=== PATIENT | male | born 1940 | race Caucasian/White ===

== ENCOUNTER → 2016-10-26 | Outpatient (CLI) | payer MEDICARE ==
[~2016-10-26] MED LIST: CENTRUM SILVER1 CTB PO; Ecotrin325 MG PO; LIPITOR10 MG PO; Lovenox40 MG/0.4 PO; MIRALAX17 GM/PACK PO; NORVASC2.5 MG PO; OMEGA-3 FISH1200 MG PO; PERCOCET 325 MG1 TAB PO; PLAVIX75 MG PO; POTASSIUM CL PO; PRILOSEC20 MG PO; RIFAMPIN300 MG PO; VANCOCIN1000 MG/25 IV
--- NOTE | ~2016-10-26 | PR ---
[place], [place] PROGRESS NOTE NAME: SHALINI HIGGINS [facility] #: [id number] UNIT #: [id number] ROOM: DOCTOR: MARISOL MartinezSONNY BIRTHDATE: [birth year] DOS: 10/26/2016 CHIEF COMPLAINT: Cyst on the left knee. HISTORY OF PRESENT ILLNESS: This is a 76-year-old gentleman with a history of an infected total knee arthroplasty. He had been seen here in the wound clinic back in the late summer. At that time, he has a history of a total knee arthroplasty. He has undergone a revision of this for infection. He was treated with IV antibiotics. He had bone debridement. He still, however, has hardware in the knee. He was seen by multiple surgeons, physicians for opinions. He has been seen by Dr. Curry for Infectious Disease who felt that there was likely chronic osteomyelitis with a sinus tract at that time and had discussed removing the hardware; however, the patient elected to not have this done. He did have a small wound; however, there was a fistula that did tunnel when he was seen here and it did eventually heal with the wound VAC. It was about 1.8 cm, possibly deeper when it first started. In any case, the wound did heal with wound care. He did not elect to undergo any surgical intervention or hyperbaric oxygen as adjuvant therapy. The wound state healed after he was seen here until he developed a swelling approximately 1 to 2 weeks ago of the left knee, again that appears to be a cyst. It is not open and has not actually drained yet, but this is how his initial wound started was exactly like this back in the past. He has not been to see his orthopedic doctor. OBJECTIVE: VITAL SIGNS: Temperature is 98.3, pulse of 78, respirations 18, blood pressure is 124/64. EXTREMITIES: He has an approximately 2 x 2 cystic area that is not warm and not acutely tender. It is soft, but I do not appreciate any surrounding cellulitis. 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 He has had a wound. He was here for back in the summer that healed with the wound VAC. He now presents with a recurrent swelling in the area. 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 The wound is currently not open. At this point, I would recommend for him to be seen by surgeon first to have this drained and then he can follow back up in the Wound Clinic once he has an open wound. He does not wish to see his previous orthopedic doctor. I did make suggestions to see Dr. Garrido. She is local and he is agreeable to this. So he is going to follow up with her first and then once the area is drained, he can follow back up with us if the wound remains open. [place], [place] PROGRESS NOTE NAME: HIGGINSSHALINI UNIT #: [id number] ROOM: DOCTOR: SONNY DAMON M.D. BIRTHDATE: [birth year] SONNY DAMON MD CM:AAMIR [id number] SONNY DAMON M.D. 10/27/16 0930 interface
== END ==
LOC: WOUNDCARE 02:09
DX: M25.162 Fistula, left knee (principal); M86.60 Other chronic osteomyelitis, unspecified site

== ENCOUNTER → 2016-11-09 | Outpatient (CLI) | payer MEDICARE ==
[~2016-11-09] MED LIST changes: +ASPIRIN81 M1 PO; +CLARITIN10 MG PO; +GOOD NEIGHBOR L10 MG PO; +KLOR-CON 88 ME1 PO; +OMEPRAZOLE D/R20 MG PO; +UROMAG84.5 MG PO; +[UNRECOGNIZED DRUG - OTHER]; +[UNRECOGNIZED DRUG - OTHER] PO
[2016-11-09 12:18] LABS: BASO # 0.1 10*3/uL (0.0-0.1); BASO % 0.7 % (0.0-1.0); EOS # 0.2 10*3/uL (0.0-0.4); EOS % 2.5 % (1.0-4.0); HEMATOCRIT 41.2 % (42.0-52.0); HEMOGLOBIN 12.6 g/dl (14.0-18.0); LYMPH # 1.8 10*3/uL (1.3-4.4); LYMPH % 22.2 % (27.0-41.0); MEAN CELL VOLUME 84.9 fl (80.0-94.0); MEAN CORPUSCULAR HGB CONC 30.6 g/dl (33.0-37.0); MEAN PLATELET VOLUME 10.2 fl (9.6-12.3); MONO # 0.7 10*3/uL (0.1-1.0); MONO % 8.9 % (3.0-9.0); NEUT # 5.4 10*3/uL (2.3-7.9); NEUT % 65.2 % (47.0-73.0); PLATELET COUNT AUTOMATED 275 10*3/uL (130-400); RED BLOOD COUNT 4.85 10*6/uL (4.50-5.90); WHITE BLOOD COUNT 8.3 10*3/uL (4.8-10.8)
[2016-11-09 12:32] LABS: HEMOGLOBIN A1c 5.1 % (4.8-5.6)
== END | disposition home or self-care (01) ==
LOC: ORTHO 01:48
PROVIDERS: Orthopaedic Surgery
DX: Z01.818 Encounter for other preprocedural examination (principal); M25.562 Pain in left knee; J84.9 Interstitial pulmonary disease, unspecified; Z87.891 Personal history of nicotine dependence; Z96.652 Presence of left artificial knee joint

== ENCOUNTER → 2016-11-12 | Day surgery (SDC) | payer MEDICARE ==
[2016-11-10 11:50] LABS: BILIRUBIN NEGATIVE (NEGATIVE); BLOOD NEGATIVE (NEGATIVE); CLARITY CLEAR (CLEAR); COLOR YELLOW (YELLOW); GLUCOSE NEGATIVE (NEGATIVE); KETONE NEGATIVE (NEGATIVE); LEUKO ESTERASE NEGATIVE (NEGATIVE); NITRITE NEGATIVE (NEGATIVE); PH 5.5 (5.0-9.0); PROTEIN NEGATIVE (NEGATIVE); SPECIFIC GRAVITY <= 1.005 (1.005-1.030); UROBILINOGEN 0.2 E.U./dl (0.2-1.0)
[2016-11-10 12:23] LABS: ALBUMIN 3.6 gm/dl (3.1-4.5); ALKALINE PHOSPHATASE 140 U/L (45-117); BILIRUBIN, TOTAL 0.4 mg/dl (0.2-1.0); BUN 9 mg/dl (7-24); CARBON DIOXIDE 29 mmol/L (21-32); CHLORIDE 105 mmol/L (98-107); EST GLOM FILT AFRICAN AMERICAN > 60 ml/min; GLUCOSE 90 mg/dL (65-99); POTASSIUM 4.6 mmol/L (3.5-5.1); SGOT/AST 26 IU/L (3-35); SGPT/ALT 28 U/L (12-78); SODIUM 143 mmol/L (136-145); TOTAL PROTEIN 7.9 gm/dL (6.4-8.2)
[2016-11-12] VITALS (7 sets, daily range): BP systolic 122–131; BP diastolic 57–76
[~2016-11-12] VITALS: Ht 170.1 cm; Wt 70.3 kg
[~2016-11-12] MED LIST changes: +PERCOCET 325 MG1 TA5 PO; +PERCOCET 325 MG1 TA6 PO; +ZOFRAN4 MG PO
--- NOTE | ~2016-11-12 | EKG ---
[place], [place] ELECTROCARDIOGRAM REPORT NAME: SHALINI HIGGINS UNIT #: [id number] ROOM: DOCTOR: HARPREET VAZQUEZ MD BIRTHDATE: [birth year] DOS: 11/10/2016 TIME: 11:46 a.m. FINDINGS: Normal sinus rhythm at rate of 63. Left bundle branch block. Abnormal electrocardiogram. HARPREET VAZQUEZ MD CM:EKGRPT:ELECTROCARDIOGRAM REPORT [id number] HARPREET VAZQUEZ MD
--- NOTE | ~2016-11-12 | O ---
[place], [place] OPERATIVE NOTE NAME: SHALINI HIGGINS UNIT #: [id number] ROOM: DOCTOR: DWIGHT GARRIDO DO BIRTHDATE: [birth year] DOS: 11/12/2016 PREOPERATIVE DIAGNOSIS: Left proximal tibia abscess with granulation tissue. POSTOPERATIVE DIAGNOSIS: Left proximal tibia abscess with granulation tissue. PROCEDURE: Left proximal tibia abscess with granulation tissue excision and curettage. SURGEON: Dwight Garrido DO PULPING MACHINE OPERATOR: Carol. ANESTHESIA: Carbajal. TYPE OF ANESTHESIA: General with LMA intubation. INDICATIONS: The patient is a 76-year-old male with a history of a total knee replacement approximately 7 years ago. The patient states he has had continual problem with the knee including recurrence of draining and abscess. The patient had a revision of the total knee and has had continued problems since as well. He has been seen by multiple total joint specialists, reconstruction specialists, infectious disease specialists, and wound care specialists. We discussed that although I could excise and apply a wound VAC to this condition, it would not be easy definitive procedure. He understands this. Risks and benefits of the procedure were explained to the patient preoperatively. Preoperative labs and x-rays were obtained. PROCEDURE IN DETAIL: The left lower extremity was marked in the holding room. The patient was brought to the operative suite. Timeout was performed. A general anesthetic with LMA intubation was performed. The left lower extremity was prepped and draped in the usual orthopedic fashion. A 3 x 3 cm area of granulation tissue with necrotic tissue was excised in its entirety and sent to the lab for further study. Cultures were obtained. There was noted to be some purulence. A curette was used to clear any remaining necrotic or granulation tissue and explore the wound. There was noted to be a 3 cm tunneling in the medial direction. This area was copiously irrigated with over 3 L of normal saline. A wound VAC was applied in the usual manner. The anesthetic was reversed. The patient was extubated and taken to the recovery room in satisfactory condition. Sponge and needle count correct. ESTIMATED BLOOD LOSS: 5 mL. DRAINS: None. PACKING: None. Wound VAC applied. [place], [place] OPERATIVE NOTE NAME: SHALINI HIGGINS UNIT #: [id number] ROOM: DOCTOR: DWIGHT GARRIDO DO BIRTHDATE: [birth year] FINDINGS: A 3 x 3 cm granulation and necrotic tissue with purulent left proximal tibia with 3 cm tunnel. SPECIMENS: The granulation tissue and culture and sensitivity were sent to the lab for further study. DWIGHT GARRIDO DO CM:OPRECORD:OPERATIVE NOTE 1 5 DWIGHT GARRIDO DO 11/13/16 0827 interface
== END | disposition home or self-care (01) ==
LOC: SDC 11-10 10:15
PROVIDERS: Orthopaedic Surgery
DX: L97.929 Non-pressure chronic ulcer of unspecified part of left lower leg with unspecified severity (principal); L02.416 Cutaneous abscess of left lower limb; M96.89 Other intraoperative and postprocedural complications and disorders of the musculoskeletal system; Z96.659 Presence of unspecified artificial knee joint; I10 Essential (primary) hypertension; Z86.73 Personal history of transient ischemic attack (TIA), and cerebral infarction without residual deficits

== ENCOUNTER → 2016-11-16 | Outpatient (CLI) | payer MEDICARE ==
--- NOTE | ~2016-11-16 | PR ---
[place], [place] PROGRESS NOTE NAME: SHALINI HIGGINS [facility] #: [id number] UNIT #: [id number] ROOM: DOCTOR: MARISOL MartinezSONNY BIRTHDATE: [birth year] DOS: 11/16/2016 WOUND CARE PROGRESS NOTE CHIEF COMPLAINT: Open wound of the left knee. HISTORY OF PRESENT ILLNESS: This is a 76-year-old male with a history of a total knee arthroplasty with subsequent infection. He underwent revision for infection. Despite this, continued to have a recurrent open wound that heals and then reopens the draining sinus tract. He was felt to have a probable chronic osteomyelitis and was seen here back last fall for an open wound that took approximately a month to heal with the wound VAC. This wound did stay healed until there was a notable recurrent cyst back early October. The wound had not opened up, but was obviously felt to have some recurrent cyst sinus tract formation. The patient was referred to ortho where he did undergo an operative excision of the area. The patient underwent OR debridement and excision of the area on 11/12/[address] Garrido. At that time, the actual bacterial cultures did not grow anything, however, the Gram stain did show rare gram-positive cocci in pairs, no bacterial growth, also he had a bone debridement done, which was consistent with an abscess, subacute suppurative inflammation with necrosis consistent with an abscess. The Gram stain was positive for gram-positive cocci. He was not placed on any antibiotics at that time. In any case, he did have a wound VAC placed operatively after the debridement done. Since they started the wound VAC, he has had a lot of trouble with the readings. It has been beeping on and off persistently with multiple readings that are either very, very low or very, very high. They did not notice any obvious air leak that they are aware of. They said they tried to call the 1800 number on the [employer] V[employer], but there was no answer over the weekend, so he is very frustrated with the wound VAC at this point. It was noted that during the operation, there was a 3 cm tunnel in the medial direction after the debridement. This area was copiously irrigated with normal saline. The patient has no other specific complaints, occasional discomfort with the wound is as noted, but overall no acute changes with the wound. No fevers or chills. OBJECTIVE: VITAL SIGNS: Stable. Temperature is 98.4, pulse of 70, respirations 18, blood pressure is 108/64. The wound is measuring 2.1 x 2 x 0.8. The base of the wound is nice and clean. There is granulation tissue noted. I do not appreciate a very deep tunnel. I do remember that in the past had tracked quite a bit that was noted. I do not appreciate this at this time. There is no surrounding cellulitis. It looks clean, no debridement was done. Apparently, there was quite a bit of difficulty getting the sponge from the wound VAC out of the wound. 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 This is chronic and refractory despite debridements and courses of antibiotics. He has had a recent OR excision of the area to remove what appeared to be an abscess. Cultures were negative. He was not placed on an antibiotic; however, after reviewing the path report, there was gram-positive cocci seen on the pathology report even though nothing grew. I [place], [place] PROGRESS NOTE NAME: GISELASHALINI Kee UNIT #: [id number] ROOM: DOCTOR: SONNY DAMON M.D. BIRTHDATE: [birth year] would like the patient to just at least be seen by Infectious Disease to get their input as far as if there are any other antibiotics that need to be added. He has been on multiple courses of antibiotics. He did have a white count done that was 8.3. This is back on the . He had a normal Chem-7, his glucose was 90. He had an ESR, which I believe was only 15. He had a CRP, which was elevated at 1.31. He had a repeat imaging study as well, which showed a stable left knee arthroplasty, so I would like the patient to follow up with ID as well. In addition, I would like to try to reuse the wound VAC as it does seem like it did really help with the measurements. According to the OR note, there was quite a large tunnel. This does not seem to be seen at this time, so I would like to go ahead and see if we can do the wound VAC back again. We will have it changed 3 times a week and have home health follow the patient. I did place a call out to the company regarding the possibility of the defective wound VAC. They state that they have to have the patient themselves called first regarding this and if there is still an issue, they will send a graphic art sales representative to the home, so hopefully we will get that resumed as soon as possible. In the meantime, we will go ahead and use Hydrofera Blue to the wound and have him changed it every other day. Follow up in the Wound Clinic in one week. SONNY DAMON MD CM:AAMIR [id number] SONNY DAMON M.D. 11/17/16 1321 interface
== END ==
LOC: WOUNDCARE 00:53
DX: T81.4XXD Infection following a procedure, subsequent encounter (principal); B99.8 Other infectious disease; Z96.652 Presence of left artificial knee joint; Y83.8 Other surgical procedures as the cause of abnormal reaction of the patient, or of later complication, without mention of misadventure at the time of the procedure

== ENCOUNTER → 2016-11-23 | Outpatient (CLI) | payer MEDICARE ==
--- NOTE | ~2016-11-23 | PR ---
[place], [place] PROGRESS NOTE NAME: SHALINI HIGGINS [facility] #: [id number] UNIT #: [id number] ROOM: DOCTOR: SONNY DAMON M.D. BIRTHDATE: [birth year] DOS: 11/23/2016 The patient comes in for a wound care visit. His chief complaint is open wound of the left knee. HISTORY OF PRESENT ILLNESS: This is a 76-year-old male with a recurrent wound with status post total knee arthroplasty with subsequent infection. He is status post revision of this operatively, but continues to have a recurrent open draining sinus tract. He was taken to the OR recently and had a wound VAC applied to it. He was seen postoperatively here in the Wound Clinic with the wound VAC on. However, at that time, he had a lot of complaints about the VAC, it was not really sucking at the time and after we had managed to get home health come in to evaluate the situation, it was felt that it was because it was not a good seal. In any case, the patient is doing well. He was not put on oral antibiotics after the debridement. He was seen by Infectious Disease. I had actually requested this. I was concerned about some bacteria on the Gram stain that was seen postoperative intraoperatively; however, the culture was negative. In any case, he is doing fairly well without any change, fevers or chills. He was seen by ID and was told that he did not need any antibiotics and he is doing a lot better with the wound VAC from last time. OBJECTIVE: VITAL SIGNS: Stable. Temperature is 98.2, pulse of 72, respirations 18, blood pressure is 122/70. WOUND EXAMINATION: The wound is measuring 1.5 x 1.6 x 0.6 in depth. There is some fibrin slough present in the base of the wound. It definitely looks improved as far as the margins go and the depth looks improved as well. A debridement was done as there was some fibrin slough present. The tissue removed was fibrin, slough and subcutaneous tissue. This was accomplished with a curette. There was a minimal amount of bleeding that was controlled with pressure. Post-debridement measurements are unchanged except for the depth of 0.7. The entire area was debrided. ASSESSMENT AND PLAN: Recurrent open wound of the left knee, status post total knee arthroplasty with probable chronic osteomyelitis. The wound seems to be improving with the wound VAC. We will continue this for now. Follow up in one week. We did mention hyperbaric oxygen as possible adjunctive treatment in the past. He was not interested, but we will consider revisiting this subject if we have stalling of the wound. Follow up in 1 week. [place], [place] PROGRESS NOTE NAME: SHALINI HIGGINS UNIT #: [id number] ROOM: DOCTOR: SONNY DAMON M.D. BIRTHDATE: [birth year] SONNY DAMON MD CM:AAMIR [id number] SONNY DAMON M.D. 11/23/16 2357 interface
== END ==
LOC: WOUNDCARE 01:11
DX: L97.822 Non-pressure chronic ulcer of other part of left lower leg with fat layer exposed (principal); M25.162 Fistula, left knee; M86.68 Other chronic osteomyelitis, other site

== ENCOUNTER → 2016-11-30 | Outpatient (CLI) | payer MEDICARE ==
--- NOTE | ~2016-11-30 | PR ---
[place], [place] PROGRESS NOTE NAME: SHALINI HIGGINS [facility] #: [id number] UNIT #: [id number] ROOM: DOCTOR: MARISOL MartinezSONNY BIRTHDATE: [birth year] DOS: 11/30/2016 CHIEF COMPLAINT: Follow up of ulcer of the left lower extremity. HISTORY OF PRESENT ILLNESS: This is a patient who has had a total knee arthroplasty done in the past with subsequent infection. He is status post revision operatively, but continues to have recurrent open draining sinus tract. He underwent incision and drainage in the Operating Room just several weeks ago and had a wound VAC placed postoperatively. He has been following in the Wound Clinic for 5 weeks now. He has had the wound VAC on for approximately 2-1/2 weeks without any fevers or chills. He said the only discomfort is sometimes it does pull on his wound and he has some discomfort with the wound VAC, but overall he is doing fairly well. No fevers or chills. No nausea or vomiting. He is able to walk. OBJECTIVE: VITAL SIGNS: As follows: His temperature is 97.7, pulse of 70, respirations 18, blood pressure is 118/70. EXTREMITIES: The wound is located on the anterior tibia below the knee. It is measuring 1.3 x 1.3 x 0.1 is what is written in the chart; however, it is obvious that it is a little deeper than that, especially in the proximal portion where I would have measured at least to 0.2. There is minimal fibrin slough present. There does appear to be granulation tissue. The periwound is a little moist and macerated, but there are no sign of cellulitis. There is no tenderness or purulence present. A selective debridement was done today. The tissue removed was just nonviable fibrin and slough. There was minimal bleeding. Post debridement measurements are unchanged. There is like I said before, the depth is a little bit deeper in the proximal portion where it is 0.2; about 100% of the wound was selectively debrided. The patient tolerated the debridement well. Cetacaine spray was used for topical anesthesia. A time-out was conducted prior to the start of the procedure. ASSESSMENT AND PLAN: Recurrent open wound of the left knee, status post left total knee arthroplasty with probable chronic osteomyelitis. The wound is definitely improving. It has made quite a bit of progress. I would like to hold off on the wound VAC for this week and just use collagen and see how he does. If it seems like it stalled, then we will go back to the wound VAC, but I would like to go ahead and try a collagen dressing for now; as the wound seems to be healing nicely, we will hold off on any hyperbaric oxygen treatment. Follow up in 1 week. [place], [place] PROGRESS NOTE NAME: SHALINI HIGGINS UNIT #: [id number] ROOM: DOCTOR: SONNY DAMON M.D. BIRTHDATE: [birth year] SONNY DAMON MD CM:PNTRANS [id number] SONNY DAMON M.D. 12/01/16 0022 interface
== END ==
LOC: WOUNDCARE 03:35
DX: L97.822 Non-pressure chronic ulcer of other part of left lower leg with fat layer exposed (principal); M25.162 Fistula, left knee

== ENCOUNTER → 2016-12-07 | Outpatient (CLI) | payer MEDICARE ==
--- NOTE | ~2016-12-07 | PR ---
[place], [place] PROGRESS NOTE NAME: SHALINI HIGGINS [facility] #: [id number] UNIT #: [id number] ROOM: DOCTOR: SONNY DAMON M.D. BIRTHDATE: [birth year] DOS: 12/07/2016 CHIEF COMPLAINT: Followup of ulcer of the left lower extremity. 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 He did have a revision done, but continues to have an open ulcer periodically. He had a wound VAC placed operatively after the area was debrided and cleaned surgically. He comes in today without any specific complaints. The wound VAC was put on hold last week as to see how he did without it. There are no fevers or chills; however, he does state that the wound is draining quite a bit still. No discomfort. He is able to get around. PHYSICAL EXAMINATION: VITAL SIGNS: He is afebrile, pulse of 68, respirations 18, blood pressure is 116/68. WOUND EXAM: The wound is measuring 1.1 x 1.1 x 0.2. Although the medical charts indicate 0.1, it is actually deeper than that, there is minimal fibrin slough present. There is fairly healthy granulation tissue. There is no surrounding cellulitis, purulence or tenderness. A debridement was done today. The tissue removed was fibrin, slough and subcutaneous tissue. There was a moderate amount of bleeding that was controlled with pressure. Post-debridement measurements are unchanged except for the depth of 0.2. 100% of the wound was debrided. A curette was utilized. Cetacaine spray was used for topical anesthesia. 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 I would like to utilize this modality for now and the patient is okay with that, although he prefers not using the wound VAC. I think since there is so much drainage, we should continue with the wound VAC. Have him follow up in one week. SONNY DAMON MD CM:PNTRANS [phone] SONNY DAMON M.D. 12/07/161899 interface
== END ==
LOC: WOUNDCARE 03:38
DX: L97.822 Non-pressure chronic ulcer of other part of left lower leg with fat layer exposed (principal); M86.662 Other chronic osteomyelitis, left tibia and fibula; I48.91 Unspecified atrial fibrillation

== ENCOUNTER → 2016-12-16 | Outpatient (CLI) | payer MEDICARE ==
--- NOTE | ~2016-12-16 | PR ---
[place], [place] PROGRESS NOTE NAME: SHALINI HIGGINS [facility] #: [id number] UNIT #: [id number] ROOM: DOCTOR: MARISOL MartinezSONNY BIRTHDATE: [birth year] DOS: 12/16/2016 CHIEF COMPLAINT: Followup of an ulcer of the left lower extremity. HISTORY OF PRESENT ILLNESS: The patient has a chronic recurrent ulcer after a total knee arthroplasty with suspected chronic osteomyelitis and chronic fistula formation. He has had a revision done after surgery; however, continues to have recurrent open ulcers and wounds after that revision. He has been coming to the Wound Clinic for 6 weeks now. He has had a wound VAC done after surgical debridement was accomplished. Last week, we restarted the wound VAC as he continued to have quite a bit of drainage and was thought that would help with some of the drainage control. He has no specific complaints. No fevers or chills. No pain, no nausea or vomiting. OBJECTIVE: VITAL SIGNS: Temperature is 98.2, pulse of 68, respirations are 18, blood pressure is 116/68. WOUND EXAM: The wound is measuring slightly smaller at 1.1 x 1.1 x 0.1 depth is noted. There is some moderate amount of fibrin slough present in the base of the wound. The periwound is slightly macerated, and there is a slight protrusion of the periwound distally noted, possibly from the negative pressure. It is not tender at all. There is no sign of an abscess or anything like that. A debridement was done. The tissue removed was fibrin, slough and subcutaneous tissue. The instrument utilized was a curette. There was a moderate amount of bleeding that was controlled with pressure. The patient tolerated the debridement well. Cetacaine spray was used for topical anesthesia. Timeout was conducted prior to the start of the procedure. The post-debridement measurements are the same except for the depth of 0.2 and that is mostly in the proximal portion of the wound. ASSESSMENT AND PLAN: Chronic ulcer of the left knee which had a lot of healing since he presented. If we do stall, we may want to consider him a candidate for hyperbaric oxygen therapy, I did mention this to him today, so that he has this also on the back of his mind. In the meantime, we will stop the wound VAC and due to the protrusion that seems to be related to the negative pressure, so I would like to just hold off on the wound VAC for now, lets do an alginate to help absorb drainage with a silver like Maxorb silver and have him change it every other day, some Calazime to the periwound should be applied and have him follow up in one week. I have also added for next week a complete blood work panel. [place], [place] PROGRESS NOTE NAME: SHALINI HIGGINS UNIT #: [id number] ROOM: DOCTOR: SONNY DAMON M.D. BIRTHDATE: [birth year] SONNY DAMON MD CM:GRISELTRANS [id number] SONNY DAMON M.D. 12/16/162321 interface
[2016-12-16 10:24] LABS: BASO # 0.1 10*3/uL (0.0-0.1); BASO % 0.7 % (0.0-1.0); EOS # 0.2 10*3/uL (0.0-0.4); EOS % 2.8 % (1.0-4.0); HEMATOCRIT 42.7 % (42.0-52.0); HEMOGLOBIN 13.6 g/dl (14.0-18.0); LYMPH # 1.6 10*3/uL (1.3-4.4); LYMPH % 22.3 % (27.0-41.0); MEAN CELL VOLUME 88.8 fl (80.0-94.0); MEAN CORPUSCULAR HGB 28.3 pg (27.0-31.0); MEAN CORPUSCULAR HGB CONC 31.9 g/dl (33.0-37.0); MEAN PLATELET VOLUME 9.2 fl (9.6-12.3); MONO # 0.8 10*3/uL (0.1-1.0); MONO % 10.4 % (3.0-9.0); NEUT # 4.6 10*3/uL (2.3-7.9); NEUT % 63.4 % (47.0-73.0); PLATELET COUNT AUTOMATED 238 10*3/uL (130-400); RED BLOOD COUNT 4.81 10*6/uL (4.50-5.90); RED CELL DISTRI WIDTH 20.2 % (0-14.5); WHITE BLOOD COUNT 7.2 10*3/uL (4.8-10.8)
[2016-12-16 10:57] LABS: ALBUMIN 3.4 gm/dl (3.1-4.5); BILIRUBIN, TOTAL 0.4 mg/dl (0.2-1.0); BUN 11 mg/dl (7-24); C-REACTIVE PROTEIN 0.94 MG/DL (0-0.3); CARBON DIOXIDE 31 mmol/L (21-32); CHLORIDE 107 mmol/L (98-107); EST GLOM FILT AFRICAN AMERICAN > 60 ml/min; GLUCOSE 91 mg/dL (65-99); POTASSIUM 4.3 mmol/L (3.5-5.1); SGOT/AST 29 IU/L (3-35); SGPT/ALT 31 U/L (12-78); SODIUM 143 mmol/L (136-145); TOTAL PROTEIN 7.5 gm/dL (6.4-8.2)
[2016-12-16 10:59] LABS: ALKALINE PHOSPHATASE 135 U/L (45-117); PREALBUMIN 20 mg/dl (20-40)
== END | disposition home or self-care (01) ==
LOC: WOUNDCARE 03:33 → LAB 03:33 → WOUNDCARE 10:46
PROVIDERS: Internal Medicine
DX: L97.522 Non-pressure chronic ulcer of other part of left foot with fat layer exposed (principal); M25.162 Fistula, left knee

== ENCOUNTER → 2016-12-23 | Outpatient (CLI) | payer MEDICARE ==
--- NOTE | ~2016-12-23 | PR ---
[place], [place] PROGRESS NOTE NAME: SHALINI HIGGINS [facility] #: [id number] UNIT #: [id number] ROOM: DOCTOR: MARISOL MartinezSONNY BIRTHDATE: [birth year] DOS: 12/23/2016 CHIEF COMPLAINT: Followup of an ulcer of the left lower extremity. 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 He had a revision done; however, continues to have a recurrent open ulcer and wounds after that revision has been done. He has been coming to the clinic for several weeks now. He initially had a wound VAC on after surgical debridement. He was left with a fairly large open wound of the leg and had a wound VAC placed. Wound VAC has been recently discontinued. He has been coming to the clinic for 8 weeks now with the steadily improving wound. No fevers, chills, nausea or vomiting. Overall, he said the leg has been feeling much better recently than it has not in a longtime. There drainage has slowed down a lot too. OBJECTIVE: VITAL SIGNS: Temperature 97.8, pulse of 60, respirations 18, blood pressure is 124/64. WOUND DESCRIPTION: The wound is measuring smaller at 0.8 x 0.7 x 0.1. There is a small amount of hypergranulation at the proximal end of this wound. This area was debrided with forceps and scissors. There was a moderate amount of bleeding and then silver nitrate was applied to the area. Post-debridement measurements are unchanged except for depth of 0.2 where the area of hypergranulation was removed. The patient tolerated the debridement well. LABORATORY DATA: His labs came back. I discussed it with the patient. Prealbumin was marginally on a low side at 20. White count was normal. Sed rate was normal. CRP was slightly elevated at 0.94. Alkaline phosphatase was slightly elevated at 135. BUN was normal. Glucose was normal. ASSESSMENT AND PLAN: Chronic ulceration of the right lower extremity, which is healing and has been steadily healing. We discussed possibility of hyperbarics; however, due to the extent that it has healed, I think that it will not be necessary to heal the wound; however, this wound may reoccur. We may want to consider if this stalls or becomes a recurrent problem. The last time he had a wound was back in March, so this will be kept in mind as well. Follow up in one week. We will fax the results of his blood work to his PCP. [place], [place] PROGRESS NOTE NAME: SHALINI HIGGINS UNIT #: [id number] ROOM: DOCTOR: SONNY DAMON M.D. BIRTHDATE: [birth year] SONNY ADMON MD CM:AAMIR 1 45 SONNY DAMON M.D. 12/23/162044 interface
== END ==
LOC: WOUNDCARE 02:28
DX: L97.812 Non-pressure chronic ulcer of other part of right lower leg with fat layer exposed (principal); M25.161 Fistula, right knee

== ENCOUNTER → 2016-12-30 | Outpatient (CLI) | payer MEDICARE ==
--- NOTE | ~2016-12-30 | PR ---
[place], [place] PROGRESS NOTE NAME: SHALINI HIGGINS [facility] #: [id number] UNIT #: [id number] ROOM: DOCTOR: MARISOL MartinezSONNY BIRTHDATE: [birth year] DOS: 12/30/2016 CHIEF COMPLAINT: Follow up of an ulcer of the left lower extremity. 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 He has had a revision done in 2013, treated with IV antibiotics, but continues to have recurrent open ulcer and wounds after that. He has been coming to the Wound Clinic now for approximately 9 weeks now. He has had OR debridement and incision and drainage back in October; initially was treated with a wound VAC. The wound VAC was discontinued for the past 2-3 weeks and the wound had been steadily improving. He was seen by Infectious Disease, but was not placed on antibiotics. OR cultures were negative, but the gram stain was positive for Gram-positive cocci. He did have Gram-positive cocci Staph aureus initially back in 2013 during his initial treatment. He comes in today without any specific complaints. There is no change in drainage. No fevers or chills. No pain. PHYSICAL EXAMINATION: He is afebrile, pulse of 72, respirations 18, blood pressure is 104/58. The wound is measuring 0.3 x 0.4 x 0.1. It is definitely looking smaller, there is no jamin-wound cellulitis or purulence. There is some slight hypergranulation noted on the proximal portion of the leg. Debridement was done. It was a selective debridement only and there was silver nitrate applied to the hypergranulated area and after the silver nitrate was applied, it was noted that the wound was fairly deep still and the probe did go down to 2.1 cm at 12 o'clock, so there was quite a bit of a tunnel still present. The debridement was selective. The tissue removed was nonviable tissue only. There was moderate bleeding that was controlled with pressure. The patient tolerated the debridement well. PLAN: Since the tunnel is present again, I would like to go back to the wound VAC. This is how he did heal back in March. However, he is going on vacation, and he would like to wait to start the wound VAC until 2 weeks from now, which is fine. In the meantime, we will go with a collagen dressing. We will pack the wound with that and then have him change it every other day and he will follow back up in the Wound Clinic in 2 weeks. I did speak to him about hyperbarics. I think that since he still has a fairly deep tunnel, that we should consider hyperbaric oxygen therapy as adjuvant treatment for chronic refractory osteomyelitis clinically. Also, he said he is willing to consider that, so we will go ahead and get a chest x-ray and EKG. I did also mention that he may need further workup depending on these studies. In addition, he was seen by Infectious Disease and not placed on antibiotic. His gram stain did have Gram-positive cocci and the last time he was here, he did respond to oral doxycycline. So due to the fact that the tunnel is still present and fairly deep, I will consider starting restarting the antibiotic if it is okay with the patient. I will discuss this with him and will call in an antibiotic for him for at least 2 weeks. [place], [place] PROGRESS NOTE [facility]: [id number] UNIT #: [id number] ROOM: DOCTOR: SONNY DAMON M.D. BIRTHDATE: [birth year] SONNY DAMON MD CM:PNTRANS 1107 1301 SONNY DAMON M.D. 12/30/16 1300 interface
== END | disposition home or self-care (01) ==
LOC: WOUNDCARE 12-28 14:11 → RAD 09:54
DX: Z01.818 Encounter for other preprocedural examination (principal); L97.929 Non-pressure chronic ulcer of unspecified part of left lower leg with unspecified severity; J84.10 Pulmonary fibrosis, unspecified; Z96.652 Presence of left artificial knee joint

== ENCOUNTER → 2017-01-01 | Outpatient (CLI) | payer MEDICARE | LOC: WOUNDCARE 03:16 | DX: L97.822 Non-pressure chronic ulcer of other part of left lower leg with fat layer exposed (principal); M86.362 Chronic multifocal osteomyelitis, left tibia and fibula; M25.162 Fistula, left knee ==

== ENCOUNTER → 2017-01-13 | Outpatient (CLI) | payer MEDICARE | LOC: WOUNDCARE 03:27 | DX: L97.822 Non-pressure chronic ulcer of other part of left lower leg with fat layer exposed (principal); M86.362 Chronic multifocal osteomyelitis, left tibia and fibula; M25.162 Fistula, left knee; Z89.612 Acquired absence of left leg above knee ==

== ENCOUNTER → 2017-01-14 | Outpatient (CLI) | payer MEDICARE | END | disposition home or self-care (01) | LOC: CARD 15:52 | DX: I08.1 Rheumatic disorders of both mitral and tricuspid valves (principal); L97.929 Non-pressure chronic ulcer of unspecified part of left lower leg with unspecified severity ==

== ENCOUNTER → 2017-01-21 | Outpatient (CLI) | payer MEDICARE | END | disposition home or self-care (01) | LOC: NM 00:26 | DX: L97.929 Non-pressure chronic ulcer of unspecified part of left lower leg with unspecified severity (principal); M86.00 Acute hematogenous osteomyelitis, unspecified site; Z96.652 Presence of left artificial knee joint ==

== ENCOUNTER → 2017-01-25 | Outpatient (CLI) | payer MEDICARE | LOC: WOUNDCARE 01-22 08:22 | DX: L97.822 Non-pressure chronic ulcer of other part of left lower leg with fat layer exposed (principal); M25.162 Fistula, left knee; M86.362 Chronic multifocal osteomyelitis, left tibia and fibula ==

== ENCOUNTER → 2017-01-26 | Outpatient (CLI) | payer MEDICARE | LOC: WOUNDCARE 03:08 | DX: L97.822 Non-pressure chronic ulcer of other part of left lower leg with fat layer exposed (principal); M86.362 Chronic multifocal osteomyelitis, left tibia and fibula; M25.162 Fistula, left knee ==

== ENCOUNTER → 2017-01-27 | Outpatient (CLI) | payer MEDICARE | LOC: WOUNDCARE 02:48 | DX: L97.822 Non-pressure chronic ulcer of other part of left lower leg with fat layer exposed (principal); M25.162 Fistula, left knee; M86.362 Chronic multifocal osteomyelitis, left tibia and fibula ==

== ENCOUNTER → 2017-01-28 | Outpatient (CLI) | payer MEDICARE | LOC: WOUNDCARE 02:31 | DX: M86.462 Chronic osteomyelitis with draining sinus, left tibia and fibula (principal); L97.822 Non-pressure chronic ulcer of other part of left lower leg with fat layer exposed; M25.162 Fistula, left knee ==

== ENCOUNTER → 2017-01-29 | Outpatient (CLI) | payer MEDICARE ==
--- NOTE | ~2017-01-29 | PR ---
[place], [place] PROGRESS NOTE NAME: SHALINI HIGGINS [facility] #: [id number] UNIT #: [id number] ROOM: DOCTOR: RACHEL CARBAJAL DO BIRTHDATE: [birth year] DOS: 01/29/2017 SUPERVISING PHYSICIAN: Dr. Carbajal SUBJECTIVE: The patient is scheduled for HBO treatment. The protocol used for 9 minute treatment at 2.0 SIVAKUMAR and 100% oxygen with both 8 minute compression and decompression time interval. Total treatment length 106 minutes of the treatment #5. OBJECTIVE: VITAL SIGNS: Both pre and post-treatment vital signs were taken, reviewed and appeared stable. Exam completed pre and post-treatment. EARS: Canals were clear. No evidence of blockage, edema, ear infection or barotraumas. NOSE: No rhinorrhea or bleeding. HEART: Regular. LUNGS: Clear to auscultation bilaterally. ASSESSMENT: 1. 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 2. An Uneventful HBO treatment was completed. PLAN: The patient will continue current HBO treatment schedule and protocol used. RACHEL CARBAJAL DO CM:AAMIR 1245 1313 RACHEL CARBAJAL DO 02/09/17 1313 interface
== END ==
LOC: WOUNDCARE 02:47
DX: L97.822 Non-pressure chronic ulcer of other part of left lower leg with fat layer exposed (principal); M86.362 Chronic multifocal osteomyelitis, left tibia and fibula; M25.162 Fistula, left knee

== ENCOUNTER → 2017-02-01 | Outpatient (CLI) | payer MEDICARE | LOC: WOUNDCARE 03:36 | DX: L97.822 Non-pressure chronic ulcer of other part of left lower leg with fat layer exposed (principal); M86.362 Chronic multifocal osteomyelitis, left tibia and fibula; M25.162 Fistula, left knee ==

== ENCOUNTER → 2017-02-02 | Outpatient (CLI) | payer MEDICARE | LOC: WOUNDCARE 04:15 | DX: L97.822 Non-pressure chronic ulcer of other part of left lower leg with fat layer exposed (principal); M86.362 Chronic multifocal osteomyelitis, left tibia and fibula; M25.162 Fistula, left knee ==

== ENCOUNTER → 2017-02-03 | Outpatient (CLI) | payer MEDICARE | LOC: WOUNDCARE 03:07 | DX: L97.822 Non-pressure chronic ulcer of other part of left lower leg with fat layer exposed (principal); M25.162 Fistula, left knee; M86.362 Chronic multifocal osteomyelitis, left tibia and fibula ==

== ENCOUNTER → 2017-02-05 | Outpatient (CLI) | payer MEDICARE ==
--- NOTE | ~2017-02-05 | PR ---
[place], [place] PROGRESS NOTE [id number] UNIT #: [id number] ROOM: DOCTOR: RACHEL CARBAJAL DO BIRTHDATE: [birth year] DOS: 02/05/2017 HYPERBARIC PROCEDURE NOTE SUPERVISING PHYSICIAN: Dr. Carbajal. SUBJECTIVE: The patient is scheduled for HBO treatment. The protocol is used for 9-minute treatment at 2.0 SIVAKUMAR on 100% oxygen with both 8-minute compression and decompression time interval. Total treatment length 106 minutes. This is treatment #10. OBJECTIVE: VITAL SIGNS: Both pre and post-vital signs were taken, reviewed and appeared stable. Exam completed pre and post-treatment. EARS: Canals are clear. No evidence of blockage, edema, ear infection or barotraumas. NOSE: No rhinorrhea or bleeding. HEART: Regular. LUNGS: Clear to auscultation bilaterally. ASSESSMENT: Chronic refractory osteomyelitis of the left tibia and fibula. PLAN: The patient will continue current HBO treatment scheduled and protocol used. RACHEL CARBAJAL DO CM:AAMIR 1259 1415 RACHEL CARBAJAL DO 02/09/17 1415 interface
== END ==
LOC: WOUNDCARE 02:23
DX: L97.822 Non-pressure chronic ulcer of other part of left lower leg with fat layer exposed (principal); M86.362 Chronic multifocal osteomyelitis, left tibia and fibula; M25.162 Fistula, left knee

== ENCOUNTER → 2017-02-08 | Outpatient (CLI) | payer MEDICARE ==
--- NOTE | ~2017-02-08 | PR ---
[place], [place] PROGRESS NOTE [id number] UNIT #: [id number] ROOM: DOCTOR: RACHEL CARBAJAL DO BIRTHDATE: [birth year] DOS: 02/08/2017 HYPERBARIC PROCEDURE NOTE. SUPERVISING PHYSICIAN: Dr. Carbajal. SUBJECTIVE: The patient is scheduled for HBO treatment. The protocol used for 90 minute treatment at 2.0 SIVAKUMAR on 100% oxygen with both 8-minute compression and decompression timed interval. Total treatment length 106 minutes. Treatment #11. OBJECTIVE: VITAL SIGNS: Both pre and post-treatment vital signs were taken, reviewed and appeared stable. Exam completed pre and post-treatment. EARS: The canals are clear. No evidence of blockage, edema, ear infection or barotraumas. NOSE: No rhinorrhea or bleeding. HEART: Regular. LUNGS: Clear to auscultation bilaterally. IMPRESSION: Chronic refractory osteomyelitis to the left tibia and fibula. PLAN: The patient to continue current HBO treatment schedule and protocol used. RACHEL CARBAJAL DO CM:AAMIR 1311 1407 RACHEL CARBAJAL DO 02/09/17 1408 interface
== END ==
LOC: WOUNDCARE 08:40
DX: L97.822 Non-pressure chronic ulcer of other part of left lower leg with fat layer exposed (principal); M86.362 Chronic multifocal osteomyelitis, left tibia and fibula; M25.162 Fistula, left knee

== ENCOUNTER → 2017-02-09 | Outpatient (CLI) | payer MEDICARE ==
--- NOTE | ~2017-02-09 | PR ---
[place], [place] PROGRESS NOTE [id number] UNIT #: [id number] ROOM: DOCTOR: RACHEL CARBAJAL DO BIRTHDATE: [birth year] DOS: 02/09/2017 HYPERBARIC PROCEDURE NOTE. SUPERVISING PHYSICIAN: Dr. Carbajal SUBJECTIVE: The patient is scheduled for HBO treatment. The protocol used for 90 minute treatment at 2.0 SIVAKUMAR on 100% oxygen with both a 8-minute compression and decompression time interval. Total treatment length 106 minutes. This is treatment #12. OBJECTIVE: VITAL SIGNS: Both pre and post treatment vital signs were taken, reviewed and appeared stable. Exam completed pre and post-treatment. EARS: Canals are clear with no evidence of blockage, edema or infection or barotraumas. NOSE: No rhinorrhea or bleeding. HEART: Regular. LUNGS: Clear to auscultation bilaterally. ASSESSMENT: Chronic refractory osteomyelitis to tibia and fibula. PLAN: The patient will continue current HBO treatment scheduled and protocol used. RACHEL CARBAJAL DO CM:PNELEUTERIO 1406 1755 RACHEL CARBAJAL DO 02/10/17 1755 interface
== END ==
LOC: WOUNDCARE 02:14
DX: L97.822 Non-pressure chronic ulcer of other part of left lower leg with fat layer exposed (principal); M86.362 Chronic multifocal osteomyelitis, left tibia and fibula; M25.162 Fistula, left knee

== ENCOUNTER → 2017-02-10 | Outpatient (CLI) | payer MEDICARE ==
--- NOTE | ~2017-02-10 | PR ---
[place], [place] PROGRESS NOTE NAME: SHALINI HIGGINS [facility] #: [id number] UNIT #: [id number] ROOM: DOCTOR: RACHEL CARBAJAL DO BIRTHDATE: [birth year] DOS: 02/10/2017 SUPERVISING PHYSICIAN: Dr. Carbajal SUBJECTIVE: The patient is scheduled for HBO treatment. The protocol was used for 9-minute treatment at 2.0 SIVAKUMAR on 100% oxygen with both 8-minute compression and decompression time interval. Total treatment length 106 minutes. This is treatment #13. OBJECTIVE: VITAL SIGNS: Both pre and post-vital signs were taken, reviewed and appeared stable. Exam completed pre and post-treatment. EARS: Canals are clear. No evidence of blockage, edema, ear infection or barotraumas. NOSE: No rhinorrhea or bleeding. HEART: Regular. LUNGS: Clear to auscultation bilaterally. ASSESSMENT: Chronic refractory osteomyelitis of the left tibia and fibula. PLAN: The patient will continue current HBO treatment scheduled and protocol used. RACHEL CARBAJAL DO CM:PNELEUTERIO 1408 1759 RACHEL CARBAJAL DO 02/10/17 1800 interface
== END ==
LOC: WOUNDCARE 02:38
DX: L97.822 Non-pressure chronic ulcer of other part of left lower leg with fat layer exposed (principal); M86.362 Chronic multifocal osteomyelitis, left tibia and fibula; M25.162 Fistula, left knee

== ENCOUNTER → 2017-02-11 | Outpatient (CLI) | payer MEDICARE ==
--- NOTE | ~2017-02-11 | PR ---
[place], [place] PROGRESS NOTE NAME[id number] UNIT #: [id number] ROOM: DOCTOR: ANIL BENNETT DO BIRTHDATE: [birth year] DOS: 02/11/2017 HYPERBARIC NOTE. The patient is supervised in the hyperbaric chamber for 14th hyperbaric treatment for chronic refractory osteomyelitis, left tibia and fibula. Tympanic membranes were negative with a score grade 0. Blood pressure 100/64, pulse 62, respirations 16, temperature 98. Post-therapy, blood pressure 120/62, pulse 80, respirations 16, temperature 98. The patient was supervised in chamber 106 minutes total with 90 minutes at depth at 2 atmospheres of pressure. No air breaks. The patient tolerated the procedure without difficulty and will return for next treatment. ANIL BENNETT DO CM:PNTRANS 183 22 ANIL BENNETT DO 02/11/17 232 interface
== END | disposition home or self-care (01) ==
LOC: WOUNDCARE 00:15
DX: L97.822 Non-pressure chronic ulcer of other part of left lower leg with fat layer exposed (principal); M86.362 Chronic multifocal osteomyelitis, left tibia and fibula; M25.162 Fistula, left knee

== ENCOUNTER → 2017-02-12 | Outpatient (CLI) | payer MEDICARE ==
--- NOTE | ~2017-02-12 | PR ---
[place], [place] PROGRESS NOTE [id number] UNIT #: [id number] ROOM: DOCTOR: ANIL BENNETT DO BIRTHDATE: [birth year] DOS: 02/12/2017 SUBJECTIVE: The patient is supervised in hyperbaric chamber on 02/12/2017 for 15th hyperbaric treatment for refractory osteomyelitis of the left tib and fib. Pre-treatment blood pressure 112/64, pulse 80, respirations 16, temperature 97.6. Tympanic membranes were grade 0 TEED score. Post-therapy blood pressure 130/64, pulse 76, respirations 16, temperature 97.7. The patient is supervised in the chamber 106 minutes, 90 minutes at depth at 2 atmospheres of pressure with no air breaks. He tolerated the procedure without difficulty and will return for next treatment. ANIL BENNETT DO CM:PNTRANS 1734 41 ANIL BENNETT DO 02/12/17 234 interface
== END ==
LOC: WOUNDCARE 03:41
DX: L97.822 Non-pressure chronic ulcer of other part of left lower leg with fat layer exposed (principal); M86.362 Chronic multifocal osteomyelitis, left tibia and fibula; M25.162 Fistula, left knee

== ENCOUNTER → 2017-02-15 | Outpatient (CLI) | payer MEDICARE ==
--- NOTE | ~2017-02-15 | PR ---
[place], [place] PROGRESS NOTE NAME: SHALINI HIGGINS [facility] #: [id number] UNIT #: [id number] ROOM: DOCTOR: MARISOL Martinez,SONNY BIRTHDATE: [birth year] DOS: 02/15/2017 This is HBO treatment #16. INDICATION: Chronic refractory osteomyelitis of the left tibia and fibula, protocol is 2.0 SIVAKUMAR with 90 minutes of oxygen and no air breaks. Compression began at 836. Treatment pressure reached at 844. Treatment length was 106 minutes. Decompression began at 10:14 and ended at 10:22. Compression rate down and decompression rate up was 2.0 psi per minute. Vitals pre-HBO blood pressure 112/60, pulse 66, respirations 16, temperature 97.9. Post HBO, blood pressure is 140/70, pulse 68, respirations 16, temperature 97.7. TEED scale is grade 0 bilaterally pre and post HBO treatment. The patient tolerated the treatment well without adverse events. I certify that I supervised this HBO treatment in accordance with Medicare guidelines. A trained emergency response team is readily available per hospital policies and procedures. Continue HBO therapy as ordered. SONNY DAMON MD CM:PNTRANS 1306 SONNY DAMON M.D. 02/15/17 1318 interface
== END ==
LOC: WOUNDCARE 02:50
DX: L97.822 Non-pressure chronic ulcer of other part of left lower leg with fat layer exposed (principal); M86.362 Chronic multifocal osteomyelitis, left tibia and fibula; M25.162 Fistula, left knee

== ENCOUNTER → 2017-02-16 | Outpatient (CLI) | payer MEDICARE ==
--- NOTE | ~2017-02-16 | PR ---
[place], [place] PROGRESS NOTE NAME: SHALINI HIGGINS [facility] #: [id number] UNIT #: [id number] ROOM: DOCTOR: SONNY DAMON M.D. BIRTHDATE: [birth year] DOS: 02/16/2017 This is treatment #17. 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 Treatment protocol is 2.0 SIVAKUMAR with 90 minutes of oxygen and no air breaks. Compression began at 8:32. Treatment pressure reached at 8:40. Decompression began at 10:10 and ends at 10:18. Compression rate down and decompression rate up was 2.0 psi per minute. Vital signs pre-HBO are blood pressure 114/64, pulse 66, respirations 16, temperature 97.8. Post-HBO, the blood pressure is 132/80, pulse 60, respirations 16, temperature 97.9. TEED scale is grade 0 bilaterally pre and post-HBO treatment. The patient tolerated the treatment well without adverse events. I certify that I supervised this HBO treatment in accordance with Medicare guidelines. A trained emergency response team is readily available per hospital policies and procedures. Continue HBO therapy as ordered. SONNY DAMON MD CM:PNTRANS 1328 1341 SONNY DAMON M.D. 02/16/17 1341 interface
== END ==
LOC: WOUNDCARE 02:29
DX: L97.822 Non-pressure chronic ulcer of other part of left lower leg with fat layer exposed (principal); M86.362 Chronic multifocal osteomyelitis, left tibia and fibula; M25.162 Fistula, left knee

== ENCOUNTER → 2017-02-17 | Outpatient (CLI) | payer MEDICARE ==
--- NOTE | ~2017-02-17 | PR ---
[place], [place] PROGRESS NOTE NAME: SHALINI HIGGINS [facility] #: [id number] UNIT #: [id number] ROOM: DOCTOR: SONNY DAMON M.D. BIRTHDATE: [birth year] DOS: 02/17/2017 HBO THERAPY NOTE This is treatment #18. 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 The protocol is 2.0 SIVAKUMAR with 90 minutes of oxygen and no air breaks. Compression begins at 8:30. Treatment pressure reached at 8:38. Treatment length was 106 minutes. Decompression began at 10:08 and ended at 10:16. Compression rate down and decompression rate up was 2.0 psi per minute. Vitals pre-HBO blood pressure 110/62, pulse 66, respirations 16, temperature 97.9. Post-HBO, the blood pressure is 130/64, pulse 76, respirations 16, temperature 97.8. TEED scale is grade 0 bilaterally pre and post-HBO treatment. The patient tolerated the treatment well without adverse events. I certify that I supervised this HBO treatment in accordance with Medicare guidelines. A trained emergency response team is readily available per hospital policies and procedures. Continue HBO therapy as ordered. SONNY DAMON MD CM:PNTRANS 1349 1357 SONNY DAMON M.D. 02/17/17 1357 interface
== END ==
LOC: WOUNDCARE 08:00
DX: L97.822 Non-pressure chronic ulcer of other part of left lower leg with fat layer exposed (principal); M86.362 Chronic multifocal osteomyelitis, left tibia and fibula; M25.162 Fistula, left knee

== ENCOUNTER → 2017-02-18 | Outpatient (CLI) | payer MEDICARE ==
--- NOTE | ~2017-02-18 | PR ---
[place], [place] PROGRESS NOTE NAME: SHALINI HIGGINS [facility] #: [id number] UNIT #: [id number] ROOM: DOCTOR: MARISOL MartinezSONNY BIRTHDATE: [birth year] DOS: 02/18/2017 SUBJECTIVE: The patient is seen for his chronic osteomyelitis of the left knee area. He has been undergoing hyperbaric oxygen. He has completed 19 treatments so far without any complications. The wound seems to be getting smaller. It is requiring less and less packing. There is really no pain associated with it. It seems to be draining less. There are no fevers or chills. He still tolerating the antibiotics. PHYSICAL EXAMINATION: VITAL SIGNS: His temperature is 97.5, pulse is 68, respirations 16, blood pressure is 128/78. The wound is located on the distal right below the knee area. It is open. It is 0.3 x 0.4 x 0.8 in maximum depth, whereas last week it was 1.3. 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 He seems to be responding to hyperbaric oxygen. The depth of the wound is improving. It is however slow in improvement. I did discuss the antibiotics with Infectious Disease and she had verbally recommended the patient to be on lifelong antibiotics. The patient's PCP told the patient to not go any more than 12 weeks of worth of antibiotics. I would like to touch base with the primary care physician regarding this issue. I do think he would respond to further HBO treatments. He is agreeable to doing at least 10 more, but is not agreeable to doing more than 30, he states at this point, so we will continue with HBO therapy for now and I would like to use a collagen dressing instead for now, as I think the Aquacel Ag rope is too thick and large to get into the wound at this point. In addition, a SNaP VAC may be helpful as well if insurance approves it and we will have to see if this can go into the chamber as well, so that may be another option for her wound care trial, so we will see how if insurance will approve and if it can go into the HBO chamber. Follow up in wound clinic in 1 week. SONNY DAMON MD CM:AAMIR 1219 1241 SONNY DAMON M.D. 02/18/17 1241 interface
--- NOTE | ~2017-02-18 | PR ---
[place], [place] PROGRESS NOTE NAME: SHALINI HIGGINS [facility] #: [id number] UNIT #: [id number] ROOM: DOCTOR: MARISOL Martinez,SONNY BIRTHDATE: [birth year] DOS: 02/18/2017 This is a HBO THERAPY NOTE This is treatment #19. 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 The protocol is 2.0 SIVAKUMAR with 90 minutes of oxygen and no air breaks. Compression began at 8:29. Treatment pressure was reached at 8:36. Decompression began at 10:06 and ended at 10:15. Treatment length was 106 minutes. Vitals pre-HBO are blood pressure of 110/74, pulse 68, respirations 16, temperature 97.5. Post-HBO, the blood pressure was 128/78, pulse of 68, respirations 16, temperature 97.5. TEED scale is grade 0 bilaterally pre and post-HBO treatment. The patient tolerated the treatment well without adverse events. I certify that I supervised this HBO treatment in accordance with Medicare guidelines. A trained emergency response team is readily available per hospital policies and procedures. Continue HBO therapy as ordered. SONNY DAMON MD CM:PNTRANS 1216 1229 SONNY DAMON M.D. 02/18/17 1230 interface
== END ==
LOC: WOUNDCARE 03:05
DX: L97.822 Non-pressure chronic ulcer of other part of left lower leg with fat layer exposed (principal); M86.362 Chronic multifocal osteomyelitis, left tibia and fibula; M25.162 Fistula, left knee

== ENCOUNTER → 2017-02-19 | Outpatient (CLI) | payer MEDICARE ==
--- NOTE | ~2017-02-19 | PR ---
[place], [place] PROGRESS NOTE NAME: SHALINI HIGGINS [facility] #: [id number] UNIT #: [id number] ROOM: DOCTOR: MIGUEL ANGEL CARBAJAL DO BIRTHDATE: [birth year] DOS: 02/19/2017 HYPERBARIC PROCEDURE NOTE SUPERVISING PHYSICIAN: Miguel Angel Carbajal DO. SUBJECTIVE: The patient is scheduled for HBO treatment. The protocol is used for 90-minute treatment at 2.0 SIVAKUMAR on 100% oxygen with both 8-minute compression and decompression time interval. Total treatment length 106 minutes, treatment #20. OBJECTIVE: VITAL SIGNS: Both pre and post-treatment vital signs were taken, reviewed and appeared stable. EARS: Exam pre and post-treatment, ear canals were clear with no evidence of blockage, edema, ear infection or barotraumas. NOSE: No rhinorrhea or bleeding. HEART: Regular. LUNGS: Clear to auscultation bilaterally. 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 PLAN: The patient will continue current HBO treatment schedule and protocol used. MIGUEL ANGEL CARBAJAL DO CM:AAMIR 1151 1452 MIGUEL ANGEL CARBAJAL DO 02/23/17 1453 interface
== END | disposition home or self-care (01) ==
LOC: WOUNDCARE 08:12
DX: L97.822 Non-pressure chronic ulcer of other part of left lower leg with fat layer exposed (principal); M86.362 Chronic multifocal osteomyelitis, left tibia and fibula; M25.162 Fistula, left knee

== ENCOUNTER → 2017-02-22 | Outpatient (CLI) | payer MEDICARE ==
--- NOTE | ~2017-02-22 | PR ---
[place], [place] PROGRESS NOTE NAME: SHALINI HIGGINS [facility] #: [id number] UNIT #: [id number] ROOM: DOCTOR: MARISOL Martinez,SONNY BIRTHDATE: [birth year] DOS: 02/22/2017 HBO THERAPY NOTE This is treatment #21. 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 The protocol is 2.0 SIVAKUMAR with 90 minutes of oxygen and no air breaks. Compression began at 832. Treatment pressure reached at 08:40. Treatment length was 106 minutes. Decompression began at 10:10 and ends at 10:18. Compression rate down and decompression rate up was 2.0 psi per minute. Vital signs pre-HBO are blood pressure 118/64, pulse 76, respirations 16, temperature 97.6. Post-HBO, the blood pressure is 132/80, pulse 66, respirations 16, temperature 97.7. TEED scale is grade 0 bilaterally pre and post-HBO treatment. The patient tolerated the treatment well without adverse events. I certify that I supervised this HBO treatment in accordance with Medicare guidelines. A trained emergency response team is readily available per hospital policies and procedures. Continue HBO therapy as ordered. SONNY DAMON MD CM:PNTRANS 1545 1630 SONNY DAMON M.D. 02/22/17 1630 interface
== END | disposition home or self-care (01) ==
LOC: WOUNDCARE 09:30
DX: M25.162 Fistula, left knee (principal); M86.362 Chronic multifocal osteomyelitis, left tibia and fibula; L97.822 Non-pressure chronic ulcer of other part of left lower leg with fat layer exposed

== ENCOUNTER → 2017-02-23 | Outpatient (CLI) | payer MEDICARE ==
--- NOTE | ~2017-02-23 | PR ---
[place], [place] PROGRESS NOTE [id number] UNIT #: [id number] ROOM: DOCTOR: SONNY DAMON M.D. BIRTHDATE: [birth year] DOS: 02/23/2017 HBO THERAPY NOTE This is treatment #22. 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 TREATMENT PROTOCOL: 2.0 SIVAKUMAR with 90 minutes of oxygen and no air breaks. Compression began at 8:32. Treatment pressure reached at 8:40. Decompression began at 10:10 and ends at 10:18. Treatment length was 106 minutes. Compression rate down and decompression rate up was 2.0 psi per minute. Vital pre-HBO are blood pressure of 120/64, pulse of 74, respirations 16, temperature 97.7. Post-HBO, the blood pressure is 140/70. I have to verify the pulse recording as I think this is an error. Respiratory rate is 16, temperature is 97.7. TEED scale is grade 0 bilaterally pre and post-HBO treatment. The patient tolerated the treatment well without adverse events. I certify that I supervised this HBO treatment in accordance with Medicare guidelines. A trained emergency response team is readily available per hospital policies and procedures. Continue HBO therapy as ordered. SONNY DAMON MD CM:PNTRANS 1444 1508 SONNY DAMON M.D. 02/23/17 1508 interface
== END | disposition home or self-care (01) ==
LOC: WOUNDCARE 03:19
DX: L97.822 Non-pressure chronic ulcer of other part of left lower leg with fat layer exposed (principal); M86.362 Chronic multifocal osteomyelitis, left tibia and fibula; M25.162 Fistula, left knee

== ENCOUNTER → 2017-02-24 | Outpatient (CLI) | payer MEDICARE ==
--- NOTE | ~2017-02-24 | PR ---
[place], [place] PROGRESS NOTE NAME[id number] UNIT #: [id number] ROOM: DOCTOR: MARISOL Martinez,SONNY BIRTHDATE: [birth year] DOS: 02/24/2017 HBO THERAPY NOTE This is a HBO treatment #23. 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 TREATMENT PROTOCOL: 2.0 SIVAKUMAR with 90 minutes of oxygen and no air breaks. Compression began at 8:40. Treatment pressure reached at 8:48. Treatment length was 106 minutes. Decompression began at 10:18 and ends at 10:26. Vitals pre-HBO are blood pressure of 120/70, pulse 68, respirations 16, temperature 97.6. Post-HBO, the blood pressure is 130/70, pulse 66, respirations 16, temperature 97.6. TEED scale is grade 0 bilaterally pre and post-HBO treatment. The patient tolerated the treatment well without adverse event. I certify that I supervised this HBO treatment in accordance with Medicare guidelines. A trained emergency response team is readily available per hospital policies and procedures. Continue HBO therapy as ordered. SONNY DAMON MD CM:PNTRANS [id number] SONNY DAMON M.D. 02/24/17 1502 interface
== END ==
LOC: WOUNDCARE 02:57
DX: L97.822 Non-pressure chronic ulcer of other part of left lower leg with fat layer exposed (principal); M86.362 Chronic multifocal osteomyelitis, left tibia and fibula; M25.162 Fistula, left knee

== ENCOUNTER → 2017-02-25 | Outpatient (CLI) | payer MEDICARE ==
--- NOTE | ~2017-02-25 | PR ---
[place], [place] PROGRESS NOTE NAME: SHALINI HIGGINS [facility] #: [id number] UNIT #: [id number] ROOM: DOCTOR: MARISOL Martinez,SONNY BIRTHDATE: [birth year] DOS: 02/25/2017 HBO THERAPY NOTE This is treatment #24. 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 TREATMENT PROTOCOL: 2.0 SIVAKUMAR with 90 minutes of oxygen and no air breaks. Compression began at 8:37. Treatment pressure was reached at 8:45. Decompression began at 10:15 and ended at 10:23. Treatment length was 106 minutes. Vitals pre-HBO, blood pressure 104/60, pulse 60, respirations 16, and temperature 97.6. Post-HBO, blood pressure 130/62, pulse 62, respirations 16, and temperature 97.5. TEED scale was grade 0 bilaterally pre and post-HBO treatment. The patient tolerated the treatment well without adverse events. I certify that I supervised this HBO treatment in accordance with Medicare guidelines. A trained emergency response team is readily available per hospital policies and procedures. Continue HBO therapy as ordered. SONNY DAMON MD CM:PNTRANS [id number] SONNY DAMON M.D. 02/25/17 1224 interface
--- NOTE | ~2017-02-25 | PR ---
[place], [place] PROGRESS NOTE NAME: SHALINI HIGGINS [facility] #: [id number] UNIT #: [id number] ROOM: DOCTOR: MARISOL MartinezSONNY BIRTHDATE: [birth year] DOS: 02/25/2017 SUBJECTIVE: The patient comes in for his chief complaint of his chronic wound of his right lower extremity. 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 He has had a revision done. He has had prolonged antibiotics in the past but has had a recurrent ulcer, an open wound off and on since that revision. He has been undergoing hyperbaric oxygen as adjuvant treatment for chronic osteomyelitis of the tibia. He has had approximately 22 treatments. We had changed him to a collagen dressing last week. He has no specific complaints. He said the wound seemed to scab over; however; when he was in the shower, the scab fell off and then he notes the wound still has some depth to it. He is not able to really pack too much into the wound because the opening is so small. The opening continues to get smaller, but he still does have a tunnel apparent. He has no fevers or chills and no pain associated with it and the drainage is quite a bit less than has been in the past. He is still on antibiotics without any specific complaints with the antibiotics at this time. OBJECTIVE: VITAL SIGNS: Stable. Temperature is 97.5, pulse is 60, respirations are 16 and blood pressure is 130/62. SKIN: The wound is measuring very small, it is actually the size of a pinhole, it is 0.1 x 0.1, but the probe still does go down to 1.3 cm in depth which is a little bit more than last week which was 0.8, but it has been essentially 1.3 for the past three weeks now. At one point, the tunnel was over 2 cm. 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 He is undergoing hyperbaric oxygen treatment as adjuvant therapy at this time. There has been some progress in the tunnel depth and the wound is definitely overall looking much smaller; however, he still does have a tunnel, it is so small, it is difficult to get anything into the wound. I would like to try to add some Bactroban to the regimen and he can lay a piece the Puracol over it. I did discuss possibly trying a trial of a SNAP VAC which would create negative pressure and should accommodate the amount of drainage he has because he does not have profound amounts of drainage. However, he wishes to wait for that and wishes to complete 30 treatments of hyperbaric oxygen which does seem reasonable as the wound definitely seems to be getting smaller since hyperbarics have started. If the wound remains open and does not heal definitively in the next few weeks, I would recommend a second opinion from an orthopedic physician, possibly from the [facility] or someone in [place] for their opinion. The patient otherwise is stable at this point. Followup in Wound Clinic in one week. [place], [place] PROGRESS NOTE NAME: SHALINI HIGGINS [facility] UNIT #: [id number] ROOM: DOCTOR: SONNY DAMON M.D. BIRTHDATE: [birth year] SONNY DAMON MD CM:PNELEUTERIO 1205 1300 SONNY DAMON M.D. 02/25/17 1300 interface
== END ==
LOC: WOUNDCARE 00:50
DX: L97.822 Non-pressure chronic ulcer of other part of left lower leg with fat layer exposed (principal); L97.811 Non-pressure chronic ulcer of other part of right lower leg limited to breakdown of skin; M86.661 Other chronic osteomyelitis, right tibia and fibula; M86.362 Chronic multifocal osteomyelitis, left tibia and fibula; M25.162 Fistula, left knee

== ENCOUNTER → 2017-03-01 | Outpatient (CLI) | payer MEDICARE ==
--- NOTE | ~2017-03-01 | PR ---
[place], [place] PROGRESS NOTE NAME: SHALINI HIGGINS [facility] #: [id number] UNIT #: [id number] ROOM: DOCTOR: MARISOL MartinezSONNY BIRTHDATE: [birth year] DOS: 03/01/2017 CHIEF COMPLAINT: Chronic ulcer of the left leg. HISTORY OF PRESENT ILLNESS: A 76-year-old male who has had a chronic and recurrent wound of the left leg, he is status post total knee arthroplasty with history of infection and osteomyelitis. He has been undergoing hyperbaric oxygen therapy. The wound seemed to have been improving with HBO. However, last week it was noted that it was a little bit deeper and there was still a sinus tract noted. Unfortunately, the patient says he noticed a big increase in the tunnel from last week and he wanted to have this evaluated today. He was supposed to have hyperbaric oxygen therapy today, but we are going to have this be on hold at the present time. In any case, he is not having any fevers or chills. There is occasional bloody drainage and he is able to go ahead about his activities of daily living as usual. He is a nonsmoker. OBJECTIVE: VITAL SIGNS: Today, vitals that are stable. Temperature is 98, pulse is 62, respirations 16, blood pressure is 130/64. WOUND EXAMINATION: The wound is measuring 0.1 x 0.1; however, the tunnel is actually 2.5 cm and it is located around the 11-12 o'clock position. So, this is definitely much deeper than it has been in quite some time. ASSESSMENT AND PLAN: Chronic sinus tract, osteomyelitis of the left leg due to the fact that there has been some deterioration and we have not seen sustained response and improvement in response with hyperbaric oxygen therapy. We will hold off for further HBO treatment at this time. He is interested in trying the SNaP VAC, I think this is a good idea. I think we will be able to place the foam in a manner where it does not actually tunnel into the wound, but just lays over on top and is only going to require very small piece of foam and due to the size of the wound, I think a SNaP VAC would be much more easier to manage for the patient. In the meantime, we will go ahead and continue with Bactroban to the base of the wound and try to pack it gently with Puracol if we can, though the opening is very small and at this point if we still have the tunnel, we may want to make an opening just a little bit bigger in order to put some of the dressing material into the wound. Unfortunately, I think that this patient would benefit from another opinion such as our orthopedic surgeon. However, he is going to think about it. He has seen multiple specialists who have all recommended various things for him and he is going to think about which specialist he would like to follow up with us. He is going to follow up with us, however, in the Wound Clinic next week. We will see if his insurance will approve the SNaP VAC. [place], [place] PROGRESS NOTE [id number] UNIT #: [id number] ROOM: DOCTOR: SONNY DAMON M.D. BIRTHDATE: [birth year] SONNY DAMON MD CM:PNTRANS 49 [phone] SONNY DAMON M.D. 03/01/171717 interface
== END | disposition home or self-care (01) ==
LOC: WOUNDCARE 00:20
DX: L97.822 Non-pressure chronic ulcer of other part of left lower leg with fat layer exposed (principal); M86.362 Chronic multifocal osteomyelitis, left tibia and fibula; M25.162 Fistula, left knee

== ENCOUNTER → 2017-03-09 | Outpatient (CLI) | payer MEDICARE ==
--- NOTE | ~2017-03-09 | PR ---
[place], [place] PROGRESS NOTE NAME: SHALINI HIGGINS [facility] #: [id number] UNIT #: [id number] ROOM: DOCTOR: MARISOL MartinezSONNY BIRTHDATE: [birth year] DOS: 03/09/2017 CHIEF COMPLAINT: Chronic ulcer of the left knee. HISTORY OF PRESENT ILLNESS: This is a 76-year-old male with chronic sinus tract formation, status post total knee arthroplasty. Even after he has had revision done, he has had prolonged IV antibiotics and continues to have an open wounds off and on since then. He has also had hyperbaric oxygen as adjuvant treatment. However, this was discontinued after 22 treatments. Initially, it was felt that it was helping; however, then the wound regressed again, so HBO was stopped. The patient really does not have any specific complaints. No fevers, chills. He does state that the antibiotics are starting to make him a little nauseous for twice a day. He did seem to tolerate once a day doxy in the past. His vitals are stable. Temperature is 98.4, pulse is 88, respirations 18, blood pressure is 102/70. The patient states that he is a nonsmoker, nondrinker and there is very little drainage coming from the wound. The wound measurements are 0.1 x 0.2 x 1.5 in depth. It is clean. There is no sign of cellulitis, there is no purulence, tenderness. No debridement was done. ASSESSMENT AND PLAN: Chronic sinus tract formation, likely secondary to chronic osteo, which is very chronic and clinically indolent at this point. The patient continues to have an open area and fairly deep wound is still present; however, we would like to try the SNaP VAC. However, I might have to make the opening of his wound a little bit bigger in order to place a small foam at the entrance of the wound and this may be more beneficial to the patient than using just plain collagen dressing. We will continue with the collagen for now and the Bactroban ointment and have him follow up next week. Hopefully by that we will have approval whether we can try the SNaP VAC or not. I did recommend for him to try to decrease the doxycycline to once a day for now. SONNY DAMON MD CM:AAMIR 1420 1815 SONNY DAMON M.D. 03/15/17 1620 interface
== END | disposition home or self-care (01) ==
LOC: WOUNDCARE 08:14
DX: L97.822 Non-pressure chronic ulcer of other part of left lower leg with fat layer exposed (principal); M86.362 Chronic multifocal osteomyelitis, left tibia and fibula; M25.162 Fistula, left knee

== ENCOUNTER → 2017-03-16 | Outpatient (CLI) | payer MEDICARE ==
--- NOTE | ~2017-03-16 | PR ---
[place], [place] PROGRESS NOTE NAME: SHALINI HIGGINS UNIT #: [id number] ROOM: DOCTOR: MARISOL MartinezSONNY BIRTHDATE: [birth year] DOS: 03/16/2017 WOUND CARE PROGRESS NOTE CHIEF COMPLAINT: Chronic ulcer of the left knee. HISTORY OF PRESENT ILLNESS: This is a 76-year-old male with a history of chronic sinus tract formation, osteomyelitis, status post total knee arthroplasty and revision. He continues to have a small sinus tract present. We were trying to obtain an approval for a SNAP VAC to see if that would help close the wound. We did get approval for this the SNAP VAC to be tried. He comes in today without any specific complaints. He does get occasional discomfort of his knee, mostly on the lateral side if it gets hid or bumped in a certain way. He gets some discomfort there, but it is not new and it has been present for a long time. No fevers or chills and he is tolerating doxycycline 1 tablet once a day. OBJECTIVE: His vitals are stable. Temperature is 98.6, pulse of 74, respirations 18, blood pressure is 118/68. The wound is measuring 0.1 x 0.1 x 1.6. The depth is measured with the probe only. There is really no sign of cellulitis. It is not tender. There is really no visible necrotic tissue. Due to the opening being so tiny, a small amount of tissue was removed with forceps and scissors to make the opening just a little bit bigger to help accommodate some of the foam to be utilized for the SNAP VAC. There was some bleeding that occurred. The post-debridement measurements are 0.3 x 0.3 length and width, depth was still 1.6. ASSESSMENT AND PLAN: Chronic sinus tract formation due to osteomyelitis, now we are going to try the SNAP VAC and see if this will help close the wound. If found the wound does not close with continued wound care, I would recommend for the patient to follow up with Orthopedic Surgery. The patient is going to follow up in the Wound Clinic in 2 days for a nursing visit to change the SNAP VAC. [place], [place] PROGRESS NOTE NAME: SHALINI HIGGINS UNIT #: [id number] ROOM: DOCTOR: MARISOL Martinez,SONNY BIRTHDATE: [birth year] SONNY DAMON MD CM:AAMIR 1525 0453 SONNY DAMON M.D. 03/17/17 0453 interface
== END ==
LOC: WOUNDCARE 03:44
DX: L97.822 Non-pressure chronic ulcer of other part of left lower leg with fat layer exposed (principal); M25.162 Fistula, left knee; M86.362 Chronic multifocal osteomyelitis, left tibia and fibula

== ENCOUNTER → 2017-03-18 | Outpatient (CLI) | payer MEDICARE ==
--- NOTE | ~2017-03-18 | PR ---
[place], [place] PROGRESS NOTE NAME: SHALINI HIGGINS [facility] #: [id number] UNIT #: [id number] ROOM: DOCTOR: SONNY DAMON M.D. BIRTHDATE: [birth year] DOS: 03/18/2017 SUBJECTIVE: The patient comes in for nursing visit for SNaP VAC change. I was asked to see him as it looked like the ____ has closed over and it was actually not open anymore. The patient reports no specific changes or pain with the wound VAC. He did not have any fevers or chills. He reports that he did notice some drainage in the tube. There was some small amount of drainage since he has had tube on, but none since this morning. His vitals are stable. Temperature 97.5, pulse 80, respirations 16, blood pressure is 110/58. The wound is healed at this point, I do not see any open area. There is complete epithelialization, it looks pretty solid. I had him bend his knee several times and the wound did not open up. So for now, we will go ahead and hold off on the wound VAC and have him follow up in 1 week to see if this maintains epithelialization. SONNY DAMON MD CM:PNTRANS 1615 0611 SONNY DAMON M.D. 03/19/17 0610 interface
== END | disposition home or self-care (01) ==
LOC: WOUNDCARE 00:23
DX: M86.362 Chronic multifocal osteomyelitis, left tibia and fibula (principal); M25.162 Fistula, left knee

== ENCOUNTER → 2017-03-25 | Outpatient (CLI) | payer MEDICARE ==
--- NOTE | ~2017-03-25 | PR ---
[place], [place] PROGRESS NOTE NAME: SHALINI HIGGINS [facility] #: [id number] UNIT #: [id number] ROOM: DOCTOR: SONNY DAMON M.D. BIRTHDATE: [birth year] DOS: 03/25/2017 WOUND CARE PROGRESS NOTE CHIEF COMPLAINT: Followup of wound on the left knee. 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 The wound had been healed last week after snap vac removed, and he comes in for his followup just to make sure that the wound has not reopened and it has not reopened. There is no pain, discomfort or drainage. OBJECTIVE: Shows vitals that are stable. Temperature 97.7, pulse 80, respirations 16, blood pressure is 110/60. The wound is healed and remains fairly solid. ASSESSMENT AND PLAN: Healed wound. Discharge the patient from the Wound Clinic and I did suggest that if the wound happens to reopen again, he should probably follow up with Orthopedics. SONNY DAMON MD CM:AAMIR 1454 1053 SONNY DAMON M.D. 03/29/17 1342 interface
== END | disposition home or self-care (01) ==
LOC: WOUNDCARE 02:36
DX: M86.362 Chronic multifocal osteomyelitis, left tibia and fibula (principal); M25.162 Fistula, left knee

== ENCOUNTER → 2017-04-19 | Outpatient (CLI) | payer MEDICARE | END | disposition home or self-care (01) | LOC: ORTHO 03:16 | DX: M25.562 Pain in left knee (principal); Z96.652 Presence of left artificial knee joint ==

== ENCOUNTER → 2017-04-21 | Outpatient (CLI) | payer MEDICARE ==
[2017-04-21 10:19] LABS: CREATININE 0.82 mg/dL (0.70-1.30)
== END | disposition home or self-care (01) ==
LOC: LAB 09:53 → MRI 10:00
PROVIDERS: Radiology Diagnostic Radiology
DX: G45.9 Transient cerebral ischemic attack, unspecified (principal); R51 Headache

== ENCOUNTER 2017-04-30 20:21 | Emergency (ER) | payer MEDICARE ==
[~2017-04-30] VITALS: Ht 182.8 cm; Wt 77.1 kg
[2017-04-30 21:12] LABS: BASO # 0.1 10*3/uL (0.0-0.1); BASO % 0.4 % (0.0-1.0); EOS # 0.2 10*3/uL (0.0-0.4); EOS % 1.3 % (1.0-4.0); HEMATOCRIT 39.1 % (42.0-52.0); HEMOGLOBIN 12.8 g/dl (14.0-18.0); LYMPH # 1.8 10*3/uL (1.3-4.4); LYMPH % 15.3 % (27.0-41.0); MEAN CELL VOLUME 91.8 fl (80.0-94.0); MEAN CORPUSCULAR HGB CONC 32.7 g/dl (33.0-37.0); MONO # 0.9 10*3/uL (0.1-1.0); NEUT # 8.5 10*3/uL (2.3-7.9); NEUT % 74.3 % (47.0-73.0); PLATELET COUNT AUTOMATED 260 10*3/uL (130-400); RED BLOOD COUNT 4.26 10*6/uL (4.50-5.90); RED CELL DISTRI WIDTH 14.5 % (0-14.5); WHITE BLOOD COUNT 11.4 10*3/uL (4.8-10.8)
[2017-04-30 21:28] LABS: ALBUMIN 3.6 gm/dl (3.1-4.5); ALKALINE PHOSPHATASE 145 U/L (45-117); BUN 12 mg/dl (7-24); CHLORIDE 104 mmol/L (98-107); CREATININE 0.97 mg/dL (0.70-1.30); POTASSIUM 3.9 mmol/L (3.5-5.1); SGOT/AST 33 IU/L (3-35); SGPT/ALT 29 U/L (12-78); SODIUM 139 mmol/L (136-145); TOTAL PROTEIN 7.4 gm/dL (6.4-8.2); TROPONIN I < 0.015 ng/ml (<0.045)
[2017-04-30 21:35] LABS: BILIRUBIN NEGATIVE (NEGATIVE); BLOOD NEGATIVE (NEGATIVE); CLARITY CLEAR (CLEAR); COLOR YELLOW (YELLOW); GLUCOSE NEGATIVE (NEGATIVE); KETONE TRACE (NEGATIVE); LEUKO ESTERASE NEGATIVE (NEGATIVE); NITRITE NEGATIVE (NEGATIVE); PH 6.5 (5.0-9.0); SPECIFIC GRAVITY 1.015 (1.005-1.030); UROBILINOGEN 0.2 E.U./dl (0.2-1.0)
[2017-04-30 21:37] VITALS: BP 126/60
[2017-04-30 21:41] LABS: RBC 0-2 rbc/hpf (0-2); WBC 0-2 wbc/hpf (0-5)
[2017-04-30 21:44] LABS: URINE AMPHETAMINES < 1000 (1000ng/ml); URINE BARBITURATES < 200 (200ng/ml); URINE BENZODIAZEPINES < 200 (200ng/ml); URINE CANNABINOIDS (THC) < 50 (50ng/ml); URINE COCAINE < 300 (300ng/ml); URINE METHADONE < 300 (300ng/ml); URINE OPIATES < 300 (300ng/ml)
[2017-04-30 21:48] LABS: URINE PHENCYCLIDINE < 25 (25ng/ml)
== END 2017-05-01 01:10 | disposition short-term general hospital (02) ==
LOC: ED 20:21
PROVIDERS: Emergency Medicine
DX: S72.002A Fracture of unspecified part of neck of left femur, initial encounter for closed fracture (principal); Z88.0 Allergy status to penicillin; Z79.899 Other long term (current) drug therapy; Z79.82 Long term (current) use of aspirin; Z86.73 Personal history of transient ischemic attack (TIA), and cerebral infarction without residual deficits; W10.9XXA Fall (on) (from) unspecified stairs and steps, initial encounter; Y93.89 Activity, other specified; Y92.89 Other specified places as the place of occurrence of the external cause; Y99.8 Other external cause status

== ENCOUNTER → 2017-08-03 | Outpatient (CLI) | payer MEDICARE | LOC: WOUNDCARE 01:40 | DX: T81.89XD Other complications of procedures, not elsewhere classified, subsequent encounter (principal); K21.9 Gastro-esophageal reflux disease without esophagitis; E78.5 Hyperlipidemia, unspecified; M86.8X6 Other osteomyelitis, lower leg; Z87.891 Personal history of nicotine dependence; Z86.73 Personal history of transient ischemic attack (TIA), and cerebral infarction without residual deficits; Y83.8 Other surgical procedures as the cause of abnormal reaction of the patient, or of later complication, without mention of misadventure at the time of the procedure ==

== ENCOUNTER → 2017-08-17 | Outpatient (CLI) | payer MEDICARE | END | disposition home or self-care (01) | LOC: WOUNDCARE 04:09 | DX: T81.89XD Other complications of procedures, not elsewhere classified, subsequent encounter (principal); S81.002D Unspecified open wound, left knee, subsequent encounter; M86.662 Other chronic osteomyelitis, left tibia and fibula; K21.9 Gastro-esophageal reflux disease without esophagitis; E78.5 Hyperlipidemia, unspecified; Z86.73 Personal history of transient ischemic attack (TIA), and cerebral infarction without residual deficits; Z87.891 Personal history of nicotine dependence; Z96.652 Presence of left artificial knee joint; Y83.8 Other surgical procedures as the cause of abnormal reaction of the patient, or of later complication, without mention of misadventure at the time of the procedure; X58.XXXD Exposure to other specified factors, subsequent encounter ==

== ENCOUNTER → 2017-11-17 | Day surgery (SDC) | payer MEDICARE ==
[~2017-11-17] VITALS: Ht 170.1 cm; Wt 68.0 kg
--- NOTE | ~2017-11-17 | O ---
[place], [place] OPERATIVE NOTE NAME: [id number] UNIT #: [id number] ROOM: DOCTOR: RAIMUNDO JONES MD BIRTHDATE: [birth year] DOS: 11/17/2017 PREOPERATIVE DIAGNOSIS: Cataract, left eye. POSTOPERATIVE DIAGNOSIS: Cataract, left eye. OPERATION: Extracapsular cataract extraction by phacoemulsification with posterior chamber intraocular lens implantation, left eye. ANESTHESIA: Monitored standby. OPERATIVE FINDINGS AND PROCEDURE: 2% Xylocaine topical anesthetic gel was applied to the eye in the preop area. The patient was taken to the operating room and prepped and draped in the standard fashion for sterile intraocular surgery. A time out procedure was performed verifying correct patient, correct site and corrects lens with Mallory Jones M.D. The operating microscope was swung into position and the lid speculum was inserted. Using a Susie paracentesis blade, a paracentesis was made through clear cornea. Viscoelastic was used to fill the anterior chamber. Using a metal keratome a 2.4 mm self-sealing clear corneal cataract incision was made temporally at the limbus. Using a pre-bent 25 gauge cystotome needle, a standard continuous curvilinear capsulorrhexis was performed. The anterior capsule was removed with forceps. The lens nucleus was hydrodissected and phacoemulsified in the posterior chamber. Cortical material was removed with the irrigation aspiration hand piece and the posterior capsule was then polished with a curet under irrigation. The posterior chamber and capsular bag were filled with viscoelastic. A posterior chamber intraocular lens manufactured by: [employer], Model #[id number], and 18.0 diopters in strength were then inserted into the posterior chamber and within the capsular bag using the lens cartridge and injector system. Viscoelastic was removed using the irrigation aspiration handpiece. The anterior chamber was filled with balanced salt solution through the paracentesis. Both the paracentesis site and cataract incisions were hydrated with BSS and verified to be water-tight and self-sealing. Cefuroxime 1 mg/0.1 mL was injected into the anterior chamber through the paracentesis site. The incision checked to be water-tight using a Weck-Vanessa sponge. The integrity of the cataract wound and ocular tension were checked. Lid speculum and drapes were removed. The patient was transferred from the operating room to the recovery room in satisfactory condition. [place], [place] OPERATIVE NOTE NAME: SHALINI HIGGINS UNIT #: [id number] ROOM: DOCTOR: RAIMUNDO JONES MD BIRTHDATE: [birth year] RAIMUNDO JONES MD CM:OPRECORD:OPERATIVE NOTE [id number] 1339 RAIMUNDO JONES MD 11/17/17 1338 interface
[2017-11-17 12:59] VITALS: BP 153/62
[2017-11-17 13:30] VITALS: BP 112/61
[2017-11-17 13:45] VITALS: BP 123/55
[2017-11-17 13:59] VITALS: BP 133/60
== END | disposition home or self-care (01) ==
LOC: SDC 11-15 14:45
DX: H25.812 Combined forms of age-related cataract, left eye (principal); K21.9 Gastro-esophageal reflux disease without esophagitis; Z86.73 Personal history of transient ischemic attack (TIA), and cerebral infarction without residual deficits; E78.00 Pure hypercholesterolemia, unspecified; Z87.442 Personal history of urinary calculi; Z86.14 Personal history of Methicillin resistant Staphylococcus aureus infection; Z87.891 Personal history of nicotine dependence; Z79.899 Other long term (current) drug therapy; Z88.0 Allergy status to penicillin; Z96.653 Presence of artificial knee joint, bilateral

== ENCOUNTER → 2017-11-24 | Day surgery (SDC) | payer MEDICARE ==
[~2017-11-24] VITALS: Ht 170.1 cm; Wt 68.0 kg
--- NOTE | ~2017-11-24 | O ---
[place], [place] OPERATIVE NOTE NAME: SHALINI HIGGINS [facility] #: [id number] UNIT #: [id number] ROOM: DOCTOR: RAIMUNDO JONES MD BIRTHDATE: [birth year] DOS: 11/24/2017 PREOPERATIVE DIAGNOSIS: Cataract, right eye. POSTOPERATIVE DIAGNOSIS: Cataract, right eye. OPERATION: Extracapsular cataract extraction by phacoemulsification with posterior chamber intraocular lens implantation, right eye. ANESTHESIA: Monitored standby. OPERATIVE FINDINGS AND PROCEDURE: 2% Xylocaine topical anesthetic gel was applied to the eye in the preop area. The patient was taken to the operating room and prepped and draped in the standard fashion for sterile intraocular surgery. A time out procedure was performed verifying correct patient, correct site and corrects lens with Mallory Jones M.D. The operating microscope was swung into position and the lid speculum was inserted. Using a Susie paracentesis blade, a paracentesis was made through clear cornea. Viscoelastic was used to fill the anterior chamber. Using a metal keratome a 2.4 mm self-sealing clear corneal cataract incision was made temporally at the limbus. Using a pre-bent 25 gauge cystotome needle, a standard continuous curvilinear capsulorrhexis was performed. The anterior capsule was removed with forceps. The lens nucleus was hydrodissected and phacoemulsified in the posterior chamber. Cortical material was removed with the irrigation aspiration hand piece and the posterior capsule was then polished with a curet under irrigation. The posterior chamber and capsular bag were filled with viscoelastic. A posterior chamber intraocular lens manufactured by: [employer], Model #[id number], and 18.0 diopters in strength were then inserted into the posterior chamber and within the capsular bag using the lens cartridge and injector system. Viscoelastic was removed using the irrigation aspiration handpiece. The anterior chamber was filled with balanced salt solution through the paracentesis. Both the paracentesis site and cataract incisions were hydrated with BSS and verified to be water-tight and self-sealing. The incision checked to be water-tight using a Weck-Vanessa sponge. The integrity of the cataract wound and ocular tension were checked. Lid speculum and drapes were removed. The patient was transferred from the operating room to the recovery room in satisfactory condition. [place], [place] OPERATIVE NOTE NAME: SHALINI HIGGINS UNIT #: [id number] ROOM: DOCTOR: RAIMUNDO JONES MD BIRTHDATE: [birth year] RAIMUNDO JONES MD CM:OPRECORD:OPERATIVE NOTE [id number] [id number] RAIMUNDO JONES MD 11/24/17 1149 interface
[2017-11-24 10:16] VITALS: BP 125/55
[2017-11-24 11:21] VITALS: BP 131/64
[2017-11-24 11:35] VITALS: BP 139/61
[2017-11-24 11:54] VITALS: BP 146/62
== END | disposition home or self-care (01) ==
LOC: SDC 11-22 14:45
DX: H25.811 Combined forms of age-related cataract, right eye (principal); K21.9 Gastro-esophageal reflux disease without esophagitis; E78.00 Pure hypercholesterolemia, unspecified; K27.9 Peptic ulcer, site unspecified, unspecified as acute or chronic, without hemorrhage or perforation; Z98.890 Other specified postprocedural states; Z86.73 Personal history of transient ischemic attack (TIA), and cerebral infarction without residual deficits; Z96.642 Presence of left artificial hip joint; Z96.652 Presence of left artificial knee joint; Z87.442 Personal history of urinary calculi; Z88.0 Allergy status to penicillin; Z79.899 Other long term (current) drug therapy; Z87.01 Personal history of pneumonia (recurrent); Z83.3 Family history of diabetes mellitus; Z82.3 Family history of stroke; Z82.49 Family history of ischemic heart disease and other diseases of the circulatory system

== ENCOUNTER → 2017-11-30 | Outpatient (CLI) | payer MEDICARE | END | disposition home or self-care (01) | LOC: WOUNDCARE 11:23 | DX: S81.002A Unspecified open wound, left knee, initial encounter (principal); M86.662 Other chronic osteomyelitis, left tibia and fibula; E78.5 Hyperlipidemia, unspecified; K21.9 Gastro-esophageal reflux disease without esophagitis; Z86.73 Personal history of transient ischemic attack (TIA), and cerebral infarction without residual deficits; Z87.891 Personal history of nicotine dependence; Z96.652 Presence of left artificial knee joint; X58.XXXA Exposure to other specified factors, initial encounter; Y93.89 Activity, other specified; Y92.89 Other specified places as the place of occurrence of the external cause; Y99.8 Other external cause status ==

== ENCOUNTER → 2017-12-07 | Outpatient (CLI) | payer MEDICARE | END | disposition home or self-care (01) | LOC: WOUNDCARE 01:27 | DX: L97.822 Non-pressure chronic ulcer of other part of left lower leg with fat layer exposed (principal); S81.002D Unspecified open wound, left knee, subsequent encounter; L02.416 Cutaneous abscess of left lower limb; E78.5 Hyperlipidemia, unspecified; M86.662 Other chronic osteomyelitis, left tibia and fibula; K21.9 Gastro-esophageal reflux disease without esophagitis; Z86.73 Personal history of transient ischemic attack (TIA), and cerebral infarction without residual deficits; Z87.891 Personal history of nicotine dependence; Z96.652 Presence of left artificial knee joint; X58.XXXD Exposure to other specified factors, subsequent encounter ==

== ENCOUNTER → 2017-12-14 | Outpatient (CLI) | payer MEDICARE | END | disposition home or self-care (01) | LOC: WOUNDCARE 04:35 | DX: S81.002D Unspecified open wound, left knee, subsequent encounter (principal); E78.5 Hyperlipidemia, unspecified; M86.662 Other chronic osteomyelitis, left tibia and fibula; K21.9 Gastro-esophageal reflux disease without esophagitis; Z96.652 Presence of left artificial knee joint; Z87.891 Personal history of nicotine dependence; Z86.73 Personal history of transient ischemic attack (TIA), and cerebral infarction without residual deficits; X58.XXXD Exposure to other specified factors, subsequent encounter ==

== ENCOUNTER → 2017-12-28 | Outpatient (CLI) | payer MEDICARE | END | disposition home or self-care (01) | LOC: WOUNDCARE 00:28 | DX: S81.002D Unspecified open wound, left knee, subsequent encounter (principal); M86.662 Other chronic osteomyelitis, left tibia and fibula; K21.9 Gastro-esophageal reflux disease without esophagitis; E78.5 Hyperlipidemia, unspecified; Z96.652 Presence of left artificial knee joint; Z87.891 Personal history of nicotine dependence; Z86.73 Personal history of transient ischemic attack (TIA), and cerebral infarction without residual deficits; X58.XXXD Exposure to other specified factors, subsequent encounter ==

== ENCOUNTER → 2018-10-25 | Outpatient (CLI) | payer MEDICARE | END | disposition home or self-care (01) | LOC: WOUNDCARE 02:36 | DX: T81.89XD Other complications of procedures, not elsewhere classified, subsequent encounter (principal); M86.662 Other chronic osteomyelitis, left tibia and fibula; K21.9 Gastro-esophageal reflux disease without esophagitis; E78.5 Hyperlipidemia, unspecified; Z86.73 Personal history of transient ischemic attack (TIA), and cerebral infarction without residual deficits; Z96.652 Presence of left artificial knee joint; Z87.891 Personal history of nicotine dependence; Y83.8 Other surgical procedures as the cause of abnormal reaction of the patient, or of later complication, without mention of misadventure at the time of the procedure ==

== ENCOUNTER → 2018-11-30 | Outpatient (CLI) | payer MEDICARE | END | disposition home or self-care (01) | LOC: RAD 14:52 | DX: J44.9 Chronic obstructive pulmonary disease, unspecified (principal) ==

== ENCOUNTER → 2019-04-10 | Outpatient (CLI) | payer MEDICARE ==
[2019-04-10 14:45] LABS: BASO # 0.1 10*3/uL (0.0-0.1); BASO % 0.8 % (0.0-1.0); EOS # 0.2 10*3/uL (0.0-0.4); EOS % 1.7 % (1.0-4.0); HEMATOCRIT 30.9 % (42.0-52.0); HEMOGLOBIN 8.5 g/dl (14.0-18.0); LYMPH # 1.8 10*3/uL (1.3-4.4); LYMPH % 19.2 % (27.0-41.0); MEAN CELL VOLUME 71.7 fl (80.0-94.0); MEAN CORPUSCULAR HGB 19.7 pg (27.0-31.0); MEAN CORPUSCULAR HGB CONC 27.5 g/dl (33.0-37.0); MEAN PLATELET VOLUME 8.4 fl (9.6-12.3); MONO # 0.9 10*3/uL (0.1-1.0); MONO % 9.4 % (3.0-9.0); NEUT # 6.4 10*3/uL (2.3-7.9); NEUT % 68.4 % (47.0-73.0); PLATELET COUNT AUTOMATED 385 10*3/uL (130-400); RED BLOOD COUNT 4.31 10*6/uL (4.50-5.90); RED CELL DISTRI WIDTH 20.4 % (0-14.5); WHITE BLOOD COUNT 9.4 10*3/uL (4.8-10.8)
[2019-04-10 15:25] LABS: ALBUMIN 3.4 gm/dl (3.1-4.5); ALKALINE PHOSPHATASE 132 U/L (45-117); BILIRUBIN, DIRECT < 0.1 mg/dL (0.0-0.2); SGOT/AST 17 IU/L (3-35); SGPT/ALT 19 U/L (12-78); TOTAL PROTEIN 7.2 gm/dL (6.4-8.2)
== END | disposition home or self-care (01) ==
LOC: LAB 14:21
PROVIDERS: Internal Medicine Critical Care Medicine
DX: Z79.899 Other long term (current) drug therapy (principal)

== ENCOUNTER → 2019-08-17 | Outpatient (CLI) | payer MEDICARE | END | disposition home or self-care (01) | LOC: RAD 08-11 00:33 | DX: J84.10 Pulmonary fibrosis, unspecified (principal) ==

== ENCOUNTER 2020-04-10 14:53 | Emergency (ER) | payer MEDICARE ==
[~2020-04-10] VITALS: Ht 167.6 cm; Wt 66.7 kg
[2020-04-10 14:56] VITALS: BP 96/75
[2020-04-10] MEDS ORDERED: NAPROSYN500 MG PO (18:30)
== END 2020-04-10 18:53 | disposition home or self-care (01) ==
LOC: ED 14:53
DX: M25.512 Pain in left shoulder (principal); M25.552 Pain in left hip; M79.642 Pain in left hand; Z88.0 Allergy status to penicillin; Z79.899 Other long term (current) drug therapy; Z79.82 Long term (current) use of aspirin; W18.39XA Other fall on same level, initial encounter; Y93.89 Activity, other specified; Y92.89 Other specified places as the place of occurrence of the external cause; Y99.8 Other external cause status

== ENCOUNTER 2020-09-07 11:57 | Emergency (ER) | payer MEDICARE ==
[~2020-09-07] VITALS: Ht 167.6 cm; Wt 66.7 kg
[~2020-09-07 11:57] MED LIST changes: +NAPROSYN500 MG PO
[2020-09-07 12:06] VITALS: BP 120/51
== END 2020-09-07 13:53 | disposition home or self-care (01) ==
LOC: ED 11:57
DX: M25.562 Pain in left knee (principal); M79.652 Pain in left thigh; K21.9 Gastro-esophageal reflux disease without esophagitis; E78.00 Pure hypercholesterolemia, unspecified; Z79.899 Other long term (current) drug therapy

== ENCOUNTER 2020-10-27 16:12 | Emergency (ER) | payer MEDICARE ==
[~2020-10-27] VITALS: Ht 167.6 cm; Wt 60.3 kg
[2020-10-27 18:03] LABS: BASO # 0.1 10*3/uL (0.0-0.1); BASO % 0.6 % (0.0-1.0); EOS # 0.3 10*3/uL (0.0-0.4); EOS % 2.7 % (1.0-4.0); HEMATOCRIT 44.3 % (42.0-52.0); LYMPH # 1.7 10*3/uL (1.3-4.4); LYMPH % 18.3 % (27.0-41.0); MEAN CELL VOLUME 95.5 fl (80.0-94.0); MEAN CORPUSCULAR HGB 29.7 pg (27.0-31.0); MEAN CORPUSCULAR HGB CONC 31.2 g/dl (33.0-37.0); MEAN PLATELET VOLUME 9.6 fl (9.6-12.3); MONO # 0.8 10*3/uL (0.1-1.0); MONO % 8.8 % (3.0-9.0); NEUT # 6.5 10*3/uL (2.3-7.9); NEUT % 69.5 % (47.0-73.0); PLATELET COUNT AUTOMATED 269 10*3/uL (130-400); RED BLOOD COUNT 4.64 10*6/uL (4.50-5.90); RED CELL DISTRI WIDTH 16.1 % (0-14.5); WHITE BLOOD COUNT 9.3 10*3/uL (4.8-10.8)
[2020-10-27 18:20] LABS: ALBUMIN 3.3 gm/dl (3.1-4.5); ALKALINE PHOSPHATASE 144 U/L (45-117); BUN 11 mg/dl (7-24); CHLORIDE 105 mmol/L (98-107); CREATININE 0.64 mg/dL (0.70-1.30); POTASSIUM 3.6 mmol/L (3.5-5.1); SGOT/AST 18 IU/L (3-35); SGPT/ALT 12 U/L (12-78); SODIUM 141 mmol/L (136-145); TOTAL PROTEIN 6.9 gm/dL (6.4-8.2)
[2020-10-27 18:35] LABS: TROPONIN I < 0.015 ng/ml (<0.045)
[2020-10-27 20:12] VITALS: BP 136/84
[2020-10-27 20:18] LABS: BILIRUBIN Negative (Negative); BLOOD Negative (Negative); CLARITY Clear (Clear); COLOR Yellow (Yellow); GLUCOSE Negative (Negative); KETONE Trace (Negative); LEUKO ESTERASE 1+ (Negative); NITRITE Negative (Negative); PH 6.5 (4.5-8.0); SPECIFIC GRAVITY 1.015 (1.001-1.030)
[2020-10-27 20:24] LABS: RBC 0-2 rbc/hpf (0-2); WBC 16-20 wbc/hpf (0-5); YEAST 1+
[2020-10-27 20:25] LABS: BACTERIA TRACE
[2020-10-27] MEDS ORDERED: CEFUROXIME AXE500 MG PO ×2 (20:47→20:48)
== END 2020-10-27 21:30 ==
LOC: ED 16:12
PROVIDERS: Physician Assistant
DX: N39.0 Urinary tract infection, site not specified (principal); R41.0 Disorientation, unspecified; R47.81 Slurred speech; Z88.0 Allergy status to penicillin; Z79.899 Other long term (current) drug therapy; Z79.82 Long term (current) use of aspirin; Z98.890 Other specified postprocedural states; Z87.442 Personal history of urinary calculi

== ENCOUNTER 2021-01-06 16:05 | Emergency (ER) | payer MEDICARE ==
[~2021-01-06 16:05] MED LIST changes: +CEFUROXIME AXE500 MG PO
[2021-01-06 16:17] VITALS: BP 121/61
[2021-01-06 17:40] LABS: ALKALINE PHOSPHATASE 157 U/L (45-117); BUN 10 mg/dl (7-24); CHLORIDE 108 mmol/L (98-107); CREATININE 0.78 mg/dL (0.70-1.30); POTASSIUM 3.6 mmol/L (3.5-5.1); SGOT/AST 37 IU/L (3-35); SGPT/ALT 34 U/L (12-78); SODIUM 140 mmol/L (136-145); TOTAL PROTEIN 7.4 gm/dL (6.4-8.2)
[2021-01-06 18:17] LABS: BASO # 0.1 10*3/uL (0.0-0.1); BASO % 0.6 % (0.0-1.0); EOS # 0.3 10*3/uL (0.0-0.4); EOS % 3.8 % (1.0-4.0); HEMATOCRIT 40.2 % (42.0-52.0); LYMPH # 1.3 10*3/uL (1.3-4.4); LYMPH % 17.4 % (27.0-41.0); MEAN CELL VOLUME 92.6 fl (80.0-94.0); MEAN CORPUSCULAR HGB CONC 31.3 g/dl (33.0-37.0); MEAN PLATELET VOLUME 10.7 fl (9.6-12.3); MONO # 0.8 10*3/uL (0.1-1.0); MONO % 10.8 % (3.0-9.0); NEUT # 5.2 10*3/uL (2.3-7.9); PLATELET COUNT AUTOMATED 238 10*3/uL (130-400); RED BLOOD COUNT 4.34 10*6/uL (4.50-5.90); RED CELL DISTRI WIDTH 15.9 % (0-14.5); WHITE BLOOD COUNT 7.7 10*3/uL (4.8-10.8)
[2021-01-06 18:34] LABS: BILIRUBIN 1+ (Negative); BLOOD Negative (Negative); CLARITY Cloudy (Clear); COLOR Dark Yellow (Yellow); GLUCOSE Negative (Negative); KETONE Trace (Negative); LEUKO ESTERASE 2+ (Negative); NITRITE Negative (Negative); PH 5.5 (4.5-8.0)
[2021-01-06] MEDS ORDERED: OMNICEF300 MG PO (18:52)
[2021-01-06 18:55] LABS: MUCOUS 1+; YEAST 2+
== END 2021-01-06 18:58 | disposition home or self-care (01) ==
LOC: ED 16:05
PROVIDERS: Internal Medicine
DX: N39.0 Urinary tract infection, site not specified (principal); Z88.0 Allergy status to penicillin; Z88.8 Allergy status to other drugs, medicaments and biological substances; Z79.899 Other long term (current) drug therapy; Z79.82 Long term (current) use of aspirin; Z98.890 Other specified postprocedural states

== ENCOUNTER 2022-02-28 14:46 | Inpatient (IN) | payer MEDICARE ==
[~2022-02-28] VITALS: Ht 170 cm; Wt 58.7 kg
[~2022-02-28 14:46] MED LIST changes: +OMNICEF300 MG PO
[2022-02-28 15:42] VITALS: BP 133/67
[2022-02-28 17:34] LABS: HEMATOCRIT 36.8 % (42.0-52.0); MEAN CELL VOLUME 77.1 fl (80.0-94.0); MEAN CORPUSCULAR HGB 23.3 pg (27.0-31.0); MEAN CORPUSCULAR HGB CONC 30.2 g/dl (33.0-37.0); MEAN PLATELET VOLUME 9.4 fl (9.6-12.3); PLATELET COUNT AUTOMATED 258 10*3/uL (130-400); RED BLOOD COUNT 4.77 10*6/uL (4.50-5.90); RED CELL DISTRI WIDTH 19.7 % (0-14.5)
[2022-02-28 17:38] LABS: MANUAL DIFF REFLEX YES
[2022-02-28 17:50] LABS: ACT PARTIAL THROMBO TIME 25.2 SECONDS (20.0-32.1)
[2022-02-28 17:52] LABS: ALKALINE PHOSPHATASE 131 U/L (45-117); BUN 13 mg/dl (7-24); CHLORIDE 106 mmol/L (98-107); CREATININE 0.87 mg/dL (0.70-1.30); POTASSIUM 3.9 mmol/L (3.5-5.1); SGOT/AST 21 IU/L (3-35); SGPT/ALT 22 U/L (12-78); SODIUM 138 mmol/L (136-145); TOTAL PROTEIN 7.3 gm/dL (6.4-8.2)
[2022-02-28 18:30] LABS: BASOPHILS 2 % (0-1); MICROCYTOSIS SLIGHT; PLATELET SUFFICIENCY NORMAL (NORMAL); TOTAL CELLS COUNTED 100 #CELLS
[2022-02-28 20:24] VITALS: BP 140/58
[2022-03-01 00:17] VITALS: BP 116/42
[2022-03-01 00:20] VITALS: BP 124/46
[2022-03-01] MEDS ORDERED: PAROXETINE HCL10 MG PO (01:13)
[2022-03-01] MEDS ORDERED: OMEPRAZOLE40 MG PO (01:15)
[2022-03-01 06:55] LABS: BASO # 0.1 10*3/uL (0.0-0.1); BASO % 0.5 % (0.0-1.0); EOS # 0.2 10*3/uL (0.0-0.4); EOS % 1.7 % (1.0-4.0); HEMATOCRIT 31.1 % (42.0-52.0); LYMPH # 0.7 10*3/uL (1.3-4.4); LYMPH % 7.5 % (27.0-41.0); MEAN CELL VOLUME 77.2 fl (80.0-94.0); MEAN CORPUSCULAR HGB 23.6 pg (27.0-31.0); MEAN CORPUSCULAR HGB CONC 30.5 g/dl (33.0-37.0); MEAN PLATELET VOLUME 9.3 fl (9.6-12.3); MONO # 0.6 10*3/uL (0.1-1.0); MONO % 6.7 % (3.0-9.0); NEUT # 7.9 10*3/uL (2.3-7.9); NEUT % 83.2 % (47.0-73.0); PLATELET COUNT AUTOMATED 202 10*3/uL (130-400); RED BLOOD COUNT 4.03 10*6/uL (4.50-5.90); RED CELL DISTRI WIDTH 19.3 % (0-14.5); WHITE BLOOD COUNT 9.6 10*3/uL (4.8-10.8)
[2022-03-01 07:10] LABS: BUN 11 mg/dl (7-24); CHLORIDE 110 mmol/L (98-107); CHOLESTEROL 145 mg/dL (<200); CREATININE 0.69 mg/dL (0.70-1.30); POTASSIUM 3.7 mmol/L (3.5-5.1); SGOT/AST 18 IU/L (3-35); SGPT/ALT 17 U/L (12-78); SODIUM 142 mmol/L (136-145); TOTAL PROTEIN 6.3 gm/dL (6.4-8.2); TRIGLYCERIDES 104 mg/dl (<150)
[2022-03-01 07:11] LABS: ALKALINE PHOSPHATASE 100 U/L (45-117); LDL CHOLESTEROL 74 mg/dL (9-159)
[2022-03-01 08:00] VITALS: BP 115/57
[2022-03-01 08:32] LABS: BILIRUBIN Negative (Negative); BLOOD Negative (Negative); CLARITY Clear (Clear); COLOR Yellow (Yellow); GLUCOSE Negative (Negative); KETONE 2+ (Negative); LEUKO ESTERASE Negative (Negative); NITRITE Negative (Negative); PH 5.5 (4.5-8.0)
[2022-03-01 08:47] LABS: MUCOUS TRACE
[2022-03-01 08:48] LABS: BACTERIA TRACE; EPITHELIAL CELLS 0-2; RBC 0-2 rbc/hpf (0-2)
[2022-03-01 16:00] VITALS: BP 107/48
[2022-03-01 20:00] VITALS: BP 101/54
[2022-03-02 04:18] LABS: BASO # 0.1 10*3/uL (0.0-0.1); BASO % 0.6 % (0.0-1.0); EOS # 0.3 10*3/uL (0.0-0.4); EOS % 3.7 % (1.0-4.0); HEMATOCRIT 30.8 % (42.0-52.0); LYMPH # 1.1 10*3/uL (1.3-4.4); MEAN CORPUSCULAR HGB 23.5 pg (27.0-31.0); MEAN CORPUSCULAR HGB CONC 30.2 g/dl (33.0-37.0); MEAN PLATELET VOLUME 9.6 fl (9.6-12.3); MONO # 0.8 10*3/uL (0.1-1.0); MONO % 9.5 % (3.0-9.0); NEUT # 6.2 10*3/uL (2.3-7.9); NEUT % 72.6 % (47.0-73.0); PLATELET COUNT AUTOMATED 199 10*3/uL (130-400); RED BLOOD COUNT 3.95 10*6/uL (4.50-5.90); RED CELL DISTRI WIDTH 19.8 % (0-14.5); WHITE BLOOD COUNT 8.6 10*3/uL (4.8-10.8)
[2022-03-02 04:43] LABS: BUN 12 mg/dl (7-24); CHLORIDE 107 mmol/L (98-107); CREATININE 0.57 mg/dL (0.70-1.30); POTASSIUM 3.5 mmol/L (3.5-5.1); SODIUM 137 mmol/L (136-145)
[2022-03-02 08:00] VITALS: BP 116/61
[2022-03-02 12:00] VITALS: BP 116/68
[2022-03-02 16:00] VITALS: BP 110/63
[2022-03-02 20:00] VITALS: BP 120/68
[2022-03-03] VITALS: BP 118/61
[2022-03-03 04:56] LABS: BUN 10 mg/dl (7-24); CHLORIDE 105 mmol/L (98-107); CREATININE 0.55 mg/dL (0.70-1.30); POTASSIUM 3.5 mmol/L (3.5-5.1); SODIUM 136 mmol/L (136-145)
[2022-03-03 06:05] LABS: BASO # 0.1 10*3/uL (0.0-0.1); EOS # 0.6 10*3/uL (0.0-0.4); EOS % 7.9 % (1.0-4.0); HEMATOCRIT 30.4 % (42.0-52.0); LYMPH # 1.6 10*3/uL (1.3-4.4); LYMPH % 22.2 % (27.0-41.0); MEAN CELL VOLUME 76.6 fl (80.0-94.0); MEAN CORPUSCULAR HGB 23.7 pg (27.0-31.0); MEAN CORPUSCULAR HGB CONC 30.9 g/dl (33.0-37.0); MEAN PLATELET VOLUME 9.9 fl (9.6-12.3); MONO # 1.1 10*3/uL (0.1-1.0); NEUT # 3.8 10*3/uL (2.3-7.9); NEUT % 53.3 % (47.0-73.0); PLATELET COUNT AUTOMATED 210 10*3/uL (130-400); RED BLOOD COUNT 3.97 10*6/uL (4.50-5.90); RED CELL DISTRI WIDTH 19.9 % (0-14.5); WHITE BLOOD COUNT 7.1 10*3/uL (4.8-10.8)
[2022-03-03 08:00] VITALS: BP 103/59
[2022-03-03 12:00] VITALS: BP 110/60
[2022-03-03] MEDS ORDERED: ONDANSETRON4 MG SL (14:23)
[2022-03-03] MEDS ORDERED: DOXYCYCLINE HY100 M3 PO (14:24)
[2022-03-03 15:31] VITALS: BP 108/45
== END 2022-03-03 15:41 | disposition home health service (06) | DRG 871 ==
LOC: ED 14:46 → 4E 19:16 → EDHOLD 19:16 → 4E 03-01 00:10
PROVIDERS: Emergency Medicine; Internal Medicine; Internal Medicine Critical Care Medicine; Student in an Organized Health Care Education/Training Program; ADMIT Emergency Medicine; ATTEND Emergency Medicine
DX: A41.9 Sepsis, unspecified organism (principal); E43 Unspecified severe protein-calorie malnutrition; J18.9 Pneumonia, unspecified organism; N39.0 Urinary tract infection, site not specified; E87.2 Acidosis; M48.56XA Collapsed vertebra, not elsewhere classified, lumbar region, initial encounter for fracture; Z20.822 Contact with and (suspected) exposure to COVID-19; R65.20 Severe sepsis without septic shock; S09.90XA Unspecified injury of head, initial encounter; W18.39XA Other fall on same level, initial encounter; D50.9 Iron deficiency anemia, unspecified; E83.41 Hypermagnesemia; J84.10 Pulmonary fibrosis, unspecified; D35.02 Benign neoplasm of left adrenal gland; K80.20 Calculus of gallbladder without cholecystitis without obstruction; K21.9 Gastro-esophageal reflux disease without esophagitis; E78.00 Pure hypercholesterolemia, unspecified; Z96.642 Presence of left artificial hip joint; Z96.652 Presence of left artificial knee joint; R73.9 Hyperglycemia, unspecified; Z88.0 Allergy status to penicillin; Z88.1 Allergy status to other antibiotic agents; Z87.442 Personal history of urinary calculi; Z83.3 Family history of diabetes mellitus; Z82.49 Family history of ischemic heart disease and other diseases of the circulatory system; Y93.89 Activity, other specified; Y92.89 Other specified places as the place of occurrence of the external cause; Y99.8 Other external cause status; Z68.20 Body mass index [BMI] 20.0-20.9, adult; Z87.11 Personal history of peptic ulcer disease; Z86.73 Personal history of transient ischemic attack (TIA), and cerebral infarction without residual deficits; Z79.899 Other long term (current) drug therapy